=== PATIENT | female | born 1985 | race American Indian/Alaskan Native ===

== ENCOUNTER 2018-11-16 11:12 | Inpatient (IN) | payer MEDICAID ==
[2018-11-16] MEDS ORDERED: TYLENOL PO PRN ×2 (11:50→13:13)
--- NOTE | 2018-11-16 12:47 | History and Physical Report ---
History of Present Illness Date of examination: 11/16/18 Date of admission: 11/16/18 11:12 Chief complaint: HERE FOR VISIT History of present illness: OB Intake Ethnicity: Mu-Ism: Uatsdin Occupation: Hotel host Assurance Senior: Bailee Hinkle Father of baby: Amandeep ALMENDAREZ contact #: [phone] Vital Signs Height: 63 in. Weight (lb): 254 BMI: 45.1 BP: 120/ 60 mm Hg Ur. Protein: 2+ Ur. Glucose: negative Chief Complaint/Current Status: c/o missed period....jewellwenson EDC given by pt: 01/28/2019, twins Pt reports this am having leaking of clear fluid causing her to keep going to the bathroom starting at 0800. No odor of the fluid. on exam today pt has + nitrazine, +copius pooling of clear fluid, + ferning on exam. Pt Will be admitted at this time to antepartum for steroid, and antibx. She states that she did get antibx in Oct 2018 on the and at [facility] because she had bv and was told the steroid would keep her from going into labor. These records are not avaialbe to me at this time to confirm it being given. I have d/w with data security consultant team and charge nurse Nicole. Menstrual History Regularity: regular Menses every: monthly days Duration: 5 LMP: 04/2018 LMP reliability: month known LMP character: normal test type: urine test Date: 11/16/2018 BC at conception: none Planned ? no EDC Calculations EDC Confirmation: 02/08/2019 Gestational Age: 28 weeks Past History : 5 Past Medical History: Reviewed history from 12/23/2015 and no changes required: Negative Past Medical History Past Surgical History: Reviewed history from 12/23/2015 and no changes required: Negative Past Surgical History Past Medical History Abnormal PAP: negative ROSALINDA Exposure: negative Infertility: negative Uterine Anomaly: negative Uterine Surgery (not C/S): negative Other Gynecologic Problems: negative Medical History Comments: negative Social Hx: single no E/t/D Infection History Hx of STD: none Varicella/Chicken Pox Status: Previous Disease Genetic History Congenital Heart Defect: Mom: no Dad: no Jacob Disease: Mom: no Dad: no Thalassemia Mom: no Dad: no Neural Tube Defect Mom: no Dad: no Down's Syndrome Mom: no Dad: no Bib-Sachs Mom: no Dad: no Sickle Cell Disease/Trait Mom: no Dad: no Hemophilia Mom: no Dad: no Muscular Dystrophy Mom: no Dad: no Cystic Fibrosis Mom: no Dad: no [place] Chorea Mom: no Dad: no Mental Retardation Mom: no Dad: no Fragile X Mom: no Dad: no Other Genetic/Chromosomal Disorder Mom: no Dad: no Child w/other defect Mom: no Dad: no Current Allergies (reviewed today): No known allergies Past History Past Medical History: other (SEE HPI) Past Surgical History: other (SEE HPI) Family/Genetic History: other (SEE HPI) Social history: other (SEE HPI) - Obstetrical History Expected Date of Delivery: 02/08/19 Actual Gestation: 28 Week(s) 0 Day(s) : 5 Para: 4 Number of Living Children: 4 Medications and Allergies Allergies Allergy/AdvReac Type Severity Reaction Status Date / Time No Known Allergies Allergy Verified 12/21/16 17:10 Home Medications Medication Instructions Recorded Confirmed Last Taken Type HYDROcodone/APAP 7.5-325 [[place] 1 each PO Q8HR PRN #14 tablet 09/06/16 Unknown Rx 7.5-325 mg TAB] Ondansetron [Zofran TAB] 4 mg PO Q8HR PRN #14 tablet 09/06/16 Unknown Rx Tamsulosin [Flomax] 0.4 mg PO QDAY #10 cap 09/06/16 Unknown Rx Nitrofurantoin Edwards/M-Cryst 100 mg PO Q12HR #14 capsule 12/22/16 Unknown Rx [Macrobid CAP] Active Meds: Active Medications Acetaminophen (Tylenol) 650 mg PO Q4H PRN PRN Reason: Pain MILD(1-3)/Fever >100.5/MACK Dexamethasone (Decadron) 6 mg IM Q12HR [facility] Stop: 11/17/18 22:01 Docusate Sodium (Colace) 100 mg PO Q12H PRN PRN Reason: Constipation Ampicillin Sodium (Polycillin/Ns 2 Gm/100 Ml) 2 gm in 100 mls @ 100 mls/hr IV Q6HR [facility]; Protocol Stop: 11/18/18 06:59 Lactated Ringer's (Lactated Ringers) 1,000 mls @ 125 mls/hr IV DIRECT [facility] Multivitamins/Iron/Calcium ( Vitamin) 1 each PO QDAY [facility] Review of Systems All systems: negative - Vital Signs Vital signs: Vital Signs Pulse BP 95 H 121/62 11/16/18 12:09 11/16/18 12:09 Temp Pulse Resp BP Pulse Ox 95 H 121/62 11/16/18 12:09 11/16/18 12:09 - Physical Exam Breasts: Positive: normal Cardiovascular: Normal S1, Normal S2 Lungs: Positive: Clear to auscultation, Normal air movement Abdomen: Positive: normal appearance, soft. Negative: distention, tenderness, guarding Genitourinary (Female): Positive: normal external genitalia, normal perenium. Negative: perineal/vulvar lesions Vulva: both: normal Vagina: Positive: other (large clear fluid noted, no bleeding, +ferning, +nitrazine) Cervix: Negative: lesion - Obstetrical Cervical Dilatation: 1.5 Cervical Effacement Percentage: 50 station: -2 Results All other labs normal. Assessment and Plan - Patient Problems (1) 28 weeks gestation of Current Visit: Yes Status: Acute Plan to address problem: -sono to confirm gestation as pt was being seen for initial ob visit in the office today - labs (2) Limited care in third trimester Current Visit: Yes Status: Acute (3) Premature rupture of membranes Current Visit: Yes Status: Acute Plan to address problem: -admit -antibx -sono to check gestation and weight -delivery for s/sx of chorio or / maternal indications. - steroids.
[2018-11-16 13:24] LABS: Basophils % (Auto) 0.4 % (0.0-1.8); Eosinophils # (Auto) 0.1 K/mm3 (0.0-0.4); Eosinophils % (Auto) 1.1 % (0.0-4.3); Hemoglobin 10.3 gm/dl (10.1-14.3); Lymphocytes # (Auto) 1.1 K/mm3 (1.2-5.4); Lymphocytes % (Auto) 13.6 % (13.4-35.0); Mean Corpuscular HGB Conc 34 % (30-34); Mean Corpuscular Volume 94 fl (79-97); Monocytes # (Auto) 0.5 K/mm3 (0.0-0.8); Monocytes % (Auto) 5.8 % (0.0-7.3); Platelet Count 214 K/mm3 (140-440); Red Blood Count 3.19 M/mm3 (3.65-5.03); Red Cell Distribution Width 12.4 % (13.2-15.2)
[2018-11-16] MEDS: DECADRON IM SCH (15:19)
[2018-11-16 16:36] LABS: Hepatitis C Virus Antibody Non-Reactive (NonReactive)
[2018-11-16 19:02] LABS: Amphetamine Screen,Urine PRESUMPTIVE NEGATIVE; Benzodiazepines Screen,Urine PRESUMPTIVE NEGATIVE; Cocaine Screen,Urine PRESUMPTIVE NEGATIVE; Methadone Screen,Urine PRESUMPTIVE NEGATIVE; Opiate Screen,Urine PRESUMPTIVE NEGATIVE
[2018-11-16 19:15] LABS: Cannabinoid Screen,Urine PRESUMPTIVE POSITIVE
[2018-11-16] MEDS: AMPICILLIN/NS 2 GM/100 ML 2 GM/100 ML BAG IV SCH (19:32)
[2018-11-16] MEDS: LACTATED RINGERS 1,000 ML IV SCH (19:36)
--- NOTE | 2018-11-16 20:21 | Ultrasound Report ---
FINAL REPORT PROCEDURE: US OB >= 14 WK FETUS ADD GEST TECHNIQUE: HISTORY: PROM COMPARISON: No prior studies are available for comparison. FINDINGS: There is evidence of diamniotic dichorionic twin intrauterine gestation. GENERAL: IUP: Twin intrauterine gestation Twin: B Position: Cephalic Placenta-position/membranes: Anterior and right lateral with grade 1 maturity., Without previa . Amniotic fluid volume: Normal. Largest vertical pocket measured 5.5 centimeters MATERNAL: Cervix: Obscured and not well visualized. FETUS: Heart rate and rhythm: 143 beats per minute BPM, Regular . anatomic survey: There is limited visualization of the spine. Otherwise anatomical survey is wi thin normal limits. MEASUREMENTS: BPD: 6.9 centimeters corresponding to 27 weeks and 5 days HC: 25.4 centimeters corresponding to 28 weeks and 0 days AC: 25.1 centimeters corresponding to 29 weeks and 2 days FL: 5.8 centimeters corresponding to 30 weeks and 1 day Mean Gestational Age (composite criteria): 28 weeks and 6 days Ratio biometry: Normal. Estimated Weight: 1376 grams. Estimated Due Date): 02/02/2019 IMPRESSION: Twin B intrauterine gestation at 28 weeks, 6 days. Expected date of delivery 02/02/2019.
--- NOTE | 2018-11-16 20:37 | Ultrasound Report ---
FINAL REPORT PROCEDURE: US OB >= 14 WEEKS FETUS TECHNIQUE: Real-time transabdominal sonography of the uterus, placenta, amniotic fluid, adnexa, and fetus was performed with image documentation. Detailed anatomic examination was performed. Tati urements were obtained to determine age/size. M-mode Doppler was used to document heartbe at. CPT 78326 HISTORY: full anatomy scan COMPARISON: No prior studies are available for comparison. FINDINGS: There is evidence of diamniotic dichorionic twin intrauterine gestation. Fetus A: GENERAL: Position: Cephalic Placental position: Posterior and left lateral with grade 1 maturity, without previa. Amniotic fluid volume: Largest vertical pocket is 1.9 centimeters MATERNAL: Cervical length: Cervix is obscured and not well visualized cm. FETUS: Heart rate and rhythm: 135 beats per minute BPM, Regular . Detailed anatomic examination: The spine is suboptimally visualized. Otherwise unremarkab le MEASUREMENTS: BPD: 6.79 centimeters corresponding to 27 weeks and 2 days HC: 26.01 centimeters corresponding to 28 weeks and 2 days AC: 24.51 centimeters corresponding to 28 weeks and 6 days FL: 5.63 centimeters corresponding to 29 weeks and 4 days Mean Gestational Age (composite criteria): 28 weeks and 3 days Ratio biometry: Normal. Estimated Weight: 1300 grams. Estimated Due Date: 02/05/2019 IMPRESSION: Live twin intrauterine gestation. Fetus B gestational age corresponds to 28 weeks and 3 days. Expected date of delivery 02/05/2019. There is decreased amniotic fluid with the largest vertical pocket measuring 1.9 centimeters spine is suboptimally visualized
[2018-11-16] MEDS ORDERED: TRIMOX ONE (22:29)
[2018-11-16] MEDS: TRIMOX PO SCH (22:32)
[2018-11-17] MEDS: AMPICILLIN/NS 2 GM/100 ML 2 GM/100 ML BAG IV SCH ×4 (00:30→22:34)
[2018-11-17] MEDS: PEPCID IV SCH ×3 (02:37→22:26)
[2018-11-17] MEDS: DECADRON IM SCH ×3 (02:37→22:25)
--- NOTE | 2018-11-17 08:27 | Progress Note ---
Assessment and Plan pt w/o complaint this AM Reports +FM Continues to have LOF Reports occasional mild cramping IUP @ 28w twins with PPROM Baby A P: continue steroids Pt is aware she will be a repeat c/s AMFM consult ordered Subjective - Subjective Date of service: 11/17/18 (no c/o voiced this AM) Principal diagnosis: Twins limited care PPROM @ 28w1d Patient reports: movement normal Objective - Vital Signs Vital Signs: Vital Signs - 12hr 11/17/18 04:32 Temperature 97.9 F Pulse Rate 106 H Respiratory 18 Rate Blood Pressure 112/58 - Exam Breasts: deferred Cardiovascular: Regular rate Lungs: Clear to auscultation Abdomen: Present: normal appearance, soft. Absent: distention, tenderness Uterus: Present: normal FHR: auscultation normal Uterine Contraction Monitor Mode: External Uterine Contraction Pattern: Irregular Uterine Tone Measurement Phase: Resting Uterine Contraction Intensity: Mild Extremities: edema Deep Tendon Reflex Grade: Normal +2 - Labs Labs: Abnormal Labs 11/16/18 12:55 RBC 3.19 L Hct 30.0 L RDW 12.4 L Lymph # 1.1 L Seg Neutrophils % 79.1 H Laboratory Results - last 24 hr 11/16/18 11/16/18 11/16/18 12:55 12:55 12:55 WBC 8.3 RBC 3.19 L Hgb 10.3 Hct 30.0 L MCV 94 MCH 32 MCHC 34 RDW 12.4 L Plt Count 214 Lymph % (Auto) 13.6 [place] % (Auto) 5.8 Eos % (Auto) 1.1 Baso % (Auto) 0.4 Lymph # 1.1 L [place] # 0.5 Eos # 0.1 Baso # 0.0 Seg Neutrophils % 79.1 H Seg Neutrophils # 6.5 Urine Opiates Screen Urine Methadone Screen Ur Barbiturates Screen Ur Phencyclidine Scrn Ur Amphetamines Screen U Benzodiazepines Scrn Urine Cocaine Screen U Marijuana (THC) Screen Drugs of Abuse Note Hep Bs Antigen Non-reactive Hepatitis C Antibody Non-reactive HIV 1&2 Antibody Rapid HIV P24 Antigen Rubella IgG Antibody Immune Blood Type Antibody Screen 11/16/18 11/16/18 11/16/18 12:55 12:55 18:29 WBC RBC Hgb Hct MCV MCH MCHC RDW Plt Count Lymph % (Auto) [place] % (Auto) Eos % (Auto) Baso % (Auto) Lymph # [place] # Eos # Baso # Seg Neutrophils % Seg Neutrophils # Urine Opiates Screen Presumptive negative Urine Methadone Screen Presumptive negative Ur Barbiturates Screen Presumptive negative Ur Phencyclidine Scrn Presumptive negative Ur Amphetamines Screen Presumptive negative U Benzodiazepines Scrn Presumptive negative Urine Cocaine Screen Presumptive negative U Marijuana (THC) Screen Presumptive positive Drugs of Abuse Note Disclamer Hep Bs Antigen Hepatitis C Antibody HIV 1&2 Antibody Rapid Non react HIV P24 Antigen Non react Rubella IgG Antibody Blood Type A POSITIVE Antibody Screen Negative
[2018-11-17] MEDS: LACTATED RINGERS 1,000 ML IV SCH ×2 (09:14→18:37)
[2018-11-17] MEDS: PRENATAL VITAMIN PO SCH (10:34)
--- NOTE | 2018-11-17 13:45 | Consultation ---
History of Present Illness Consult date: 11/17/18 Past History Past Medical History: other (SEE HPI) Past Surgical History: other (SEE HPI) Family/Genetic History: other (SEE HPI) - Obstetrical History : 5 Medications and Allergies Allergies Allergy/AdvReac Type Severity Reaction Status Date / Time No Known Allergies Allergy Verified 12/21/16 17:10 Home Medications Medication Instructions Recorded Confirmed Last Taken Type HYDROcodone/APAP 7.5-325 [Theodosia 1 each PO Q8HR PRN #14 tablet 09/06/16 Unknown Rx 7.5-325 mg TAB] Ondansetron [Zofran TAB] 4 mg PO Q8HR PRN #14 tablet 09/06/16 Unknown Rx Tamsulosin [Flomax] 0.4 mg PO QDAY #10 cap 09/06/16 Unknown Rx Nitrofurantoin [place]/M-Cryst 100 mg PO Q12HR #14 capsule 12/22/16 Unknown Rx [Macrobid CAP] Active Meds: Active Medications Acetaminophen (Tylenol) 650 mg PO Q6H PRN PRN Reason: Pain MILD(1-3)/Fever >100.5/MACK Amoxicillin (Trimox) 500 mg PO Q8HR [facility] Stop: 11/23/18 12:59 Last Admin: 11/16/18 22:32 Dose: 500 mg Documented by: Azithromycin (Zithromax) 1,000 mg PO ONCE ONE Stop: 11/17/18 14:01 Dexamethasone (Decadron) 6 mg IM Q12HR [facility] Stop: 11/17/18 22:01 Last Admin: 11/17/18 10:33 Dose: 6 mg Documented by: Docusate Sodium (Colace) 100 mg PO Q12H PRN PRN Reason: Constipation Famotidine (Pepcid) 20 mg IV BID [facility] Last Admin: 11/17/18 10:31 Dose: 20 mg Documented by: Ampicillin Sodium (Polycillin/Ns 2 Gm/100 Ml) 2 gm in 100 mls @ 100 mls/hr IV Q6HR [facility]; Protocol Stop: 11/18/18 06:59 Last Admin: 11/17/18 08:00 Dose: 100 mls/hr Documented by: Lactated Ringer's (Lactated Ringers) 1,000 mls @ 125 mls/hr IV DIRECT [facility]CKINLEY Last Admin: 01/31/19 09:14 Dose: 125 mls/hr Documented by: Multivitamins/Iron/Calcium ( Vitamin) 1 each PO QDAY [facility] Last Admin: 11/17/18 10:34 Dose: 1 each Documented by: - Vital Signs Vital signs: Vital Signs Pulse BP 95 H 121/62 11/16/18 12:09 11/16/18 12:09 Temp Pulse Resp BP Pulse Ox 89.9 F L 96 H 16 112/54 98 11/17/18 08:20 11/17/18 11:49 11/17/18 10:22 11/17/18 11:49 11/17/18 10:22 Results Result Diagrams: 11/16/18 12:55 All other labs normal. Assessment and Plan AMFM Consult performed Full note to follow
[2018-11-17] MEDS ORDERED: ZITHROMAX PO ONE (14:00)
--- NOTE | 2018-11-17 18:05 | Event Note ---
Date: 11/17/18 (OOB to toilet) consulted with Regular diet ordered Pt denies any ctx Reports good FM X 2
[2018-11-17] MEDS: TRIMOX PO SCH (23:37)
[2018-11-18] MEDS: AMPICILLIN/NS 2 GM/100 ML 2 GM/100 ML BAG IV SCH ×3 (04:18→16:00)
--- NOTE | 2018-11-18 07:17 | Progress Note ---
Assessment and Plan Patient resting, no complaints. denies cramping or ctx. reports active FM. Last dose of steroids given @ 2200 last night 11/17/18. Continue current management. - Patient Problems (1) 28 weeks gestation of Current Visit: Yes Status: Acute (2) Limited care in third trimester Current Visit: Yes Status: Acute (3) Premature rupture of membranes Current Visit: Yes Status: Acute Qualifiers: PROM onset of labor timing: unspecified duration between rupture of membranes and onset of labor PROM gestational age: -third trimester Qualified Code(s): O42.913 - premature rupture of membranes, unspecified as to length of time between rupture and onset of labor, third trimester Subjective - Subjective Date of service: 11/18/18 (warehouse administrative assistant note) Principal diagnosis: Twins limited care PPROM @ 28w2d Patient reports: loss of fluid (small amount of leaking - clear, odorless), movement normal, no new complaints, no vaginal bleeding, no contractions Objective - Vital Signs Vital Signs: Vital Signs - 12hr 11/17/18 11/17/18 11/18/18 21:27 23:34 01:23 Temperature 98.1 F 98.1 F 98.4 F Pulse Rate 105 H 97 H Blood Pressure 107/53 101/51 11/18/18 11/18/18 11/18/18 03:41 04:57 05:44 Temperature 98.6 F 98.9 F Pulse Rate 90 Blood Pressure 106/52 11/18/18 06:48 Temperature 98.9 F Pulse Rate Blood Pressure - Exam Breasts: normal Cardiovascular: Regular rate Lungs: Clear to auscultation, Normal air movement Abdomen: Present: normal appearance, soft Vulva: both: normal Uterus: Present: normal FHR: auscultation normal Uterine Contraction Pattern: Absent Extremities: normal Deep Tendon Reflex Grade: Normal +2 - Labs Labs: Abnormal Labs 11/16/18 12:55 RBC 3.19 L Hct 30.0 L RDW 12.4 L Lymph # 1.1 L Seg Neutrophils % 79.1 H Laboratory Results - last 24 hr 11/16/18 12:55 RPR Nonreactive
[2018-11-18] MEDS: LACTATED RINGERS 1,000 ML IV SCH ×2 (09:07→16:57)
[2018-11-18] MEDS: PEPCID IV SCH ×2 (10:28→22:00)
[2018-11-18] MEDS: PRENATAL VITAMIN PO SCH (10:28)
[2018-11-18] MEDS ORDERED: AMPICILLIN/NS 2 GM/100 ML 2 GM/100 ML BAG IV ONE (16:35)
[2018-11-18] MEDS: TRIMOX PO SCH (22:00)
[2018-11-19] MEDS: LACTATED RINGERS 1,000 ML IV SCH ×3 (02:06→18:51)
[2018-11-19] MEDS: TRIMOX PO SCH ×3 (05:56→22:10)
[2018-11-19] MEDS: PEPCID IV SCH ×2 (10:30→22:10)
[2018-11-19] MEDS: PRENATAL VITAMIN PO SCH (10:30)
--- NOTE | 2018-11-19 11:02 | Progress Note ---
Assessment and Plan Patient resting comfortably in bed with no complaints. Reports +FM for baby A and baby B. Reports continued leaking of clear, odorless fluid from vagina. Patient denies vaginal bleeding or any contractions or cramps. Patient remains afebrile. VSS. Continue current POC. Subjective - Subjective Date of service: 11/19/18 Principal diagnosis: Twins limited care PPROM @ 28w3d Patient reports: loss of fluid (small amount of leaking - clear, odorless), movement normal, no new complaints, no vaginal bleeding, no contractions Objective - Vital Signs Vital Signs: Vital Signs - 12hr 11/19/18 11/19/18 08:55 09:06 Temperature 97.9 F Pulse Rate 82 82 Respiratory 16 Rate Blood Pressure 108/53 Blood Pressure 108/53 [Left] - Exam Breasts: normal Cardiovascular: Regular rate, Normal S1, Normal S2 Lungs: Clear to auscultation Abdomen: Present: normal appearance, soft, normal bowel sounds. Absent: distention, tenderness Uterus: Present: normal FHR: auscultation normal (appropriate for gestational age per last monitoring period (baby A and B)) Uterine Contraction Monitor Mode: Palpation (none palpated and patient denies) Uterine Contraction Pattern: Absent Extremities: normal - Labs Labs: Abnormal Labs 11/16/18 12:55 RBC 3.19 L Hct 30.0 L RDW 12.4 L Lymph # 1.1 L Seg Neutrophils % 79.1 H
[2018-11-20] MEDS: LACTATED RINGERS 1,000 ML IV SCH (02:41)
[2018-11-20] MEDS: TRIMOX PO SCH ×2 (05:56→14:25)
--- NOTE | 2018-11-20 08:22 | Progress Note ---
Assessment and Plan IMP: 1. IUP 30w1d by MICHAEL of 01/28/19 2. dichorionic twins 3. PPROM 4. previous C/S 5. s/p steroids REC: 1. Complete latency antibiotics. 2. No tocolysis. 3. Twice weekly BPPs (ordered for today). 4. Deliver at 34 weeks or sooner if indicated. 5. Still awaiting 10-week scan report to confirm MICHAEL. Subjective - Subjective Date of service: 11/20/18 Principal diagnosis: 1. IUP 30w1d; 2. dichorionic twins; 3. PPROM Patient reports: movement normal, no new complaints, no vaginal bleeding, no contractions Objective - Vital Signs Vital Signs: Vital Signs - 12hr 11/20/18 11/20/18 06:00 06:01 Temperature 98.2 F Pulse Rate 91 H 91 H Blood Pressure 136/63 Blood Pressure 136/63 [Left] - Exam Narrative Exam: Appears well; resting in bed. Abdomen: Present: soft. Absent: tenderness - Labs Labs: Abnormal Labs 11/16/18 12:55 RBC 3.19 L Hct 30.0 L RDW 12.4 L Lymph # 1.1 L Seg Neutrophils % 79.1 H
--- NOTE | 2018-11-20 10:53 | Progress Note ---
Assessment and Plan Patient resting comfortably in bed. US tech at bedside performing ordered US. Verbal preliminary report of BPP 8/8 for both Baby A and Baby B. Monitoring reviewed from 0600, appropriate for gestational age. Patient reports no complaints. Denies any contractions or cramps, no vaginal bleeding. Reports +FM for baby A and B. VSSAF. DWP discrepancy in EDC based on patients stated EDC of 01/28 and [facility] EDC of 02/08 from US on Oct 20. Patient produced a "Proof of letter" from [facility] dated July 19 2018 which states EDC of 01/28 by US. Request for release of records signed and sent for images and verification of adjusted EDC. Per Dr. Nixon, will adjust current EDC to 02/08/19 pending records from early US in July. Will continue with current POC. Assessment and Plan Per AMFM: IMP: 1. IUP 30w1d by MICHAEL of 01/28/19 (28w4d by EDC of 02/08/2019, US at [facility] Oct 20, 2018) 2. dichorionic twins 3. PPROM 4. previous C/S 5. s/p steroids REC: 1. Complete latency antibiotics. 2. No tocolysis. 3. Twice weekly BPPs (ordered for today). 4. Deliver at 34 weeks or sooner if indicated. 5. Still awaiting 10-week scan report to confirm MICHAEL. Subjective - Subjective Date of service: 11/20/18 Principal diagnosis: 1. IUP 28w4d; 2. dichorionic twins; 3. PPROM Patient reports: loss of fluid (continued from admission-small amount occasionally, clear, no odor), movement normal, no new complaints, no vaginal bleeding, no contractions Objective - Vital Signs Vital Signs: Vital Signs - 12hr 11/20/18 11/20/18 11/20/18 06:00 06:01 09:43 Temperature 98.2 F Pulse Rate 91 H 91 H 86 Respiratory Rate Blood Pressure 136/63 117/56 Blood Pressure 136/63 [Left] 11/20/18 09:48 Temperature 99 F Pulse Rate 86 Respiratory 16 Rate Blood Pressure Blood Pressure 117/56 [Left] - Exam Breasts: normal (appropriate for gestational age per last monitoring period 0600) Cardiovascular: Regular rate, Normal S1, Normal S2 Lungs: Clear to auscultation Abdomen: Present: normal appearance, soft, normal bowel sounds. Absent: distention, tenderness Uterus: Present: normal FHR: auscultation normal Uterine Contraction Monitor Mode: Palpation (no contractions noted on palpation, patient denies ctx or cramping) Uterine Contraction Pattern: Absent Extremities: normal Deep Tendon Reflex Grade: Normal +2 - Labs Labs: Abnormal Labs 11/16/18 12:55 RBC 3.19 L Hct 30.0 L RDW 12.4 L Lymph # 1.1 L Seg Neutrophils % 79.1 H - Results US- obstetric: pending (US tech currently at bedside. Preliminary verbal report BPP 05/25 for baby A and 05/25 for baby B)
[2018-11-20] MEDS: PRENATAL VITAMIN PO SCH (10:57)
[2018-11-20] MEDS: PEPCID IV SCH (10:58)
--- NOTE | 2018-11-20 13:58 | Ultrasound Report ---
FINAL REPORT EXAM: US OB BPP WO NON-STRESS HISTORY: twins, PROM COMPARISON: Obstetric ultrasound performed on 11/16/2017 TECHNIQUE: Biophysical profile score was performed for twin A FINDINGS: Biophysical profile score: breathing movement: 2 movement: 2 posterior and tone: 2 Qualitative amniotic fluid volume: 2 Total score: 8 heart rate: 141 beats per minute IMPRESSION: Normal biophysical profile score of 8.
--- NOTE | 2018-11-20 14:00 | Ultrasound Report ---
FINAL REPORT EXAM: US OB FOLLOWUP EA ADD GESTAT HISTORY: srom COMPARISON: Obstetric ultrasound performed on 11/16/2018 TECHNIQUE: Biophysical profile score was performed for twin B FINDINGS: Biophysical profile score: breathing movement: 2 movement: 2 posterior and tone: 2 Qualitative amniotic fluid volume: 2 Total score: 8 heart rate: 156 beats per minute. IMPRESSION: Normal biophysical profile score.
--- NOTE | 2018-11-20 18:05 | Event Note ---
Date: 11/20/18 Agree with MW exam and note. EDC listed in H&P is what was charted when pt was admitted to [facility]. The records from previous clinic have not made it to the chart at the time so an edc of 01/28/19 has not been confirmed. Will con't with edc that was confirmed via sonogram until records obtained. No s/sx of chorio at the time. Will con't expectant management.
--- NOTE | 2018-11-21 07:06 | Progress Note ---
Assessment and Plan Pt states she is in good spirits this AM No c/o voiced VSS Reports +FM X 2 Denies any bleeding cramping. P: continue POC as noted consulted. Per AMFM: IMP: 1. IUP 30w2d by MICHAEL of 01/28/19 (28w5d by EDC of 02/08/2019, US at [facility] Oct 20, 2018) 2. dichorionic twins 3. PPROM 4. previous C/S 5. s/p steroids REC: 1. Complete latency antibiotics. 2. No tocolysis. 3. Twice weekly BPPs .BPP 8/8 X 2 on 11-20-18 (Next BPP ordered for 11-23-18) 4. Deliver at 34 weeks or sooner if indicated. 5. Still awaiting 10-week scan report to confirm MICHAEL. Subjective - Subjective Date of service: 11/21/18 (no c/o voiced this AM) Principal diagnosis: 1. IUP 28w4d; 2. dichorionic twins; 3. PPROM Patient reports: loss of fluid (continued from admission-small amount occasionally, clear, no odor), movement normal, no new complaints, no vaginal bleeding, no contractions Objective - Vital Signs Vital Signs: Vital Signs - 12hr 11/20/18 11/20/18 11/21/18 19:57 19:59 00:33 Temperature 99.3 F Pulse Rate 92 H 88 Respiratory 18 Rate Blood Pressure 121/56 112/56 11/21/18 11/21/18 11/21/18 00:34 04:37 04:38 Temperature 98.3 F 98.7 F Pulse Rate 85 Respiratory 18 16 Rate Blood Pressure 105/50 - Exam Breasts: deferred Cardiovascular: Regular rate Lungs: Clear to auscultation Abdomen: Present: normal appearance, soft. Absent: distention, tenderness Vulva: both: normal Uterus: Present: normal FHR: auscultation normal Uterine Contraction Monitor Mode: External Uterine Contraction Pattern: Absent Uterine Tone Measurement Phase: Resting Extremities: normal Deep Tendon Reflex Grade: Normal +2 - Labs Labs: Abnormal Labs 11/16/18 12:55 RBC 3.19 L Hct 30.0 L RDW 12.4 L Lymph # 1.1 L Seg Neutrophils % 79.1 H
[2018-11-21] MEDS: PRENATAL VITAMIN PO SCH (10:25)
[2018-11-21] MEDS: PEPCID IV SCH ×2 (10:25→22:45)
[2018-11-21] MEDS: TRIMOX PO SCH ×3 (14:04→23:07)
[2018-11-21 20:51] LABS: Amphetamine Screen,Urine PRESUMPTIVE NEGATIVE; Benzodiazepines Screen,Urine PRESUMPTIVE NEGATIVE; Cannabinoid Screen,Urine PRESUMPTIVE NEGATIVE; Cocaine Screen,Urine PRESUMPTIVE NEGATIVE; Methadone Screen,Urine PRESUMPTIVE NEGATIVE; Opiate Screen,Urine PRESUMPTIVE NEGATIVE
[2018-11-22] MEDS: TRIMOX PO SCH ×3 (05:57→21:47)
--- NOTE | 2018-11-22 07:19 | Progress Note ---
Assessment and Plan Patient resting w/o complaints. She denies ctx, cramping or bleeding. She continues to have a scant amount of leaking fluid - nonodorus. She appears to be in good spirits. Continue current management. Report to confirm MICHAEL in chart under records. hand written, states EDC 01/28/19 by u[facility] 07/19[facility]. Per [facility]: IMP: 1. IUP 30w3d by MICHAEL of 01/28/19 (28w5d by EDC of 02/08/2019, US at [facility] Oct 20, 2018) 2. dichorionic twins 3. PPROM 4. previous C/S 5. s/p steroids REC: 1. Complete latency antibiotics. 2. No tocolysis. 3. Twice weekly BPPs .BPP 8/8 X 2 on 11-20-18 (Next BPP ordered for 11-23-18) 4. Deliver at 34 weeks or sooner if indicated. - Patient Problems (1) Limited care in third trimester Current Visit: Yes Status: Acute (2) Premature rupture of membranes Current Visit: Yes Status: Acute Qualifiers: PROM onset of labor timing: unspecified duration between rupture of membranes and onset of labor PROM gestational age: -third trimester Qualified Code(s): O42.913 - premature rupture of membranes, unspecified as to length of time between rupture and onset of labor, third trimester (3) 30 weeks gestation of Current Visit: Yes Status: Acute Subjective - Subjective Date of service: 11/22/18 Principal diagnosis: 1. IUP 30w3d; 2. dichorionic twins; 3. PPROM Patient reports: loss of fluid (continued from admission-small amount occasionally, clear, no odor), movement normal, no new complaints, no vaginal bleeding, no contractions Objective - Vital Signs Vital Signs: Vital Signs - 12hr 11/21/18 11/21/18 11/22/18 20:05 20:07 00:27 Temperature 98.4 F 98 F Pulse Rate 92 H Respiratory 18 18 Rate Blood Pressure 128/58 11/22/18 11/22/18 00:36 04:23 Temperature 97.9 F Pulse Rate 93 H 89 Respiratory 18 Rate Blood Pressure 119/62 124/58 - Exam Breasts: normal Cardiovascular: Regular rate Lungs: Clear to auscultation, Normal air movement Abdomen: Present: normal appearance, soft Vulva: both: normal Uterus: Present: normal Uterine Tone Measurement Phase: Resting - Labs Labs: Abnormal Labs 11/16/18 12:55 RBC 3.19 L Hct 30.0 L RDW 12.4 L Lymph # 1.1 L Seg Neutrophils % 79.1 H Laboratory Results - last 24 hr 11/21/18 18:29 Urine Opiates Screen Presumptive negative Urine Methadone Screen Presumptive negative Ur Barbiturates Screen Presumptive negative Ur Phencyclidine Scrn Presumptive negative Ur Amphetamines Screen Presumptive negative U Benzodiazepines Scrn Presumptive negative Urine Cocaine Screen Presumptive negative U Marijuana (THC) Screen Presumptive negative Drugs of Abuse Note Disclamer
--- NOTE | 2018-11-22 07:52 | Progress Note ---
Assessment and Plan A: 1. ZACK twin IUP at 30 3/7 weeks 2. PPROM 3. previous C/S 4. s/p steroids Rec: Monitor for labor , distress, chorioamnionitis Twice weekly testing , growth scans q3 weeks Delivery at 34 0/7 sooner if indicated Subjective - Subjective Date of service: 11/22/18 Principal diagnosis: 1. IUP 30w3d; 2. dichorionic twins; 3. PPROM Interval history: no complaints Patient reports: loss of fluid (continued from admission-small amount occasionally, clear, no odor), movement normal, no new complaints, no vaginal bleeding, no contractions Objective - Vital Signs Vital Signs: Vital Signs - 12hr 11/21/18 11/21/18 11/22/18 20:05 20:07 00:27 Temperature 98.4 F 98 F Pulse Rate 92 H Respiratory 18 18 Rate Blood Pressure 128/58 Blood Pressure [Left] 11/22/18 11/22/18 11/22/18 00:36 04:23 07:42 Temperature 97.9 F Pulse Rate 93 H 89 85 Respiratory 18 Rate Blood Pressure 119/62 124/58 110/54 Blood Pressure [Left] 11/22/18 07:43 Temperature 98.1 F Pulse Rate 85 Respiratory 18 Rate Blood Pressure Blood Pressure 110/54 [Left] - Exam Narrative Exam: NAD Abdomen: Present: soft (non tender) FHR: category 1 Uterine Contraction Pattern: Absent Extremities: normal - Labs Labs: Abnormal Labs 11/16/18 12:55 RBC 3.19 L Hct 30.0 L RDW 12.4 L Lymph # 1.1 L Seg Neutrophils % 79.1 H Laboratory Results - last 24 hr 11/21/18 18:29 Urine Opiates Screen Presumptive negative Urine Methadone Screen Presumptive negative Ur Barbiturates Screen Presumptive negative Ur Phencyclidine Scrn Presumptive negative Ur Amphetamines Screen Presumptive negative U Benzodiazepines Scrn Presumptive negative Urine Cocaine Screen Presumptive negative U Marijuana (THC) Screen Presumptive negative Drugs of Abuse Note Disclamer - Results US- obstetric: report reviewed (11/20/18 , BPP 8x8 x 2)
[2018-11-22] MEDS: PRENATAL VITAMIN PO SCH (10:29)
[2018-11-22] MEDS: PEPCID IV SCH ×2 (10:30→21:48)
[2018-11-22] MEDS ORDERED: XYLOCAINE MPF 2% ONE ×3 (15:25)
[2018-11-23] MEDS: TRIMOX PO SCH (06:13)
--- NOTE | 2018-11-23 07:21 | Progress Note ---
Assessment and Plan Patient resting comfortably in bed, reports feeling well, denies any complaints.Patient denies any contractions or cramping. Reports continued amount of scant clear fluid from vagina, no-odor noted. VSS, pt remains afebrile. Pt reports good movement for baby A and baby B. Continue current POC per [facility] recommendations. Subjective - Subjective Date of service: 11/23/18 Principal diagnosis: 1. IUP 30w4d; 2. dichorionic twins; 3. PPROM Patient reports: loss of fluid (continued from admission-small amount occasionally, clear, no odor), movement normal, no new complaints, no vaginal bleeding, no contractions Objective - Vital Signs Vital Signs: Vital Signs - 12hr 11/22/18 11/22/18 19:59 20:01 Temperature 97.9 F Pulse Rate 96 H 96 H Respiratory 18 Rate Blood Pressure 123/56 Blood Pressure 123/56 [Left] - Exam Cardiovascular: Regular rate, Normal S1, Normal S2 Lungs: Clear to auscultation Abdomen: Present: normal appearance, soft. Absent: distention, tenderness Uterus: Present: normal FHR: auscultation normal Uterine Contraction Pattern: Absent Extremities: normal - Labs Labs: Abnormal Labs 11/16/18 12:55 RBC 3.19 L Hct 30.0 L RDW 12.4 L Lymph # 1.1 L Seg Neutrophils % 79.1 H
[2018-11-23] MEDS: PEPCID IV SCH ×2 (10:00→10:15)
[2018-11-23] MEDS: PRENATAL VITAMIN PO SCH (10:15)
--- NOTE | 2018-11-23 14:30 | Ultrasound Report ---
ULTRASOUND BIOPHYSICAL PROFILE: ULTRASOUND BIOPHYSICAL PROFILE ADD EXAM: History: Twin gestation, premature rupture of membranes Technique: Transabdominal ultrasound with Doppler interrogation. Baby A 2 - breathing movements 2 - movements 2 - posture and tone 2 - Qualitative amniotic fluid volume 8 - TOTAL SCORE OF POSSIBLE 8 Heart Rate (bpm) 146 Baby B 2 - breathing movements 2 - movements 2 - posture and tone 2 - Qualitative amniotic fluid volume 8 - TOTAL SCORE OF POSSIBLE 8 Heart Rate (bpm) 150
--- NOTE | 2018-11-24 07:35 | Progress Note ---
Assessment and Plan patient doing well, no complaints. Monitoring in progress - active movement noted. reviewed u/s results from yesterday's BPP. All questions addressed, patient denies needs at this time. continue current management. 1. IUP 30w5d by MICHAEL of 01/28/19 obtained at clinic 07/19/18 (EDC of 02/08/2019, US at [facility] Oct 20, 2018) 2. dichorionic twins 3. PPROM 4. previous C/S 5. s/p steroids REC per AMFM: 1. Complete latency antibiotics. 2. No tocolysis. 3. Twice weekly BPPs -BPP 8/8 X 2 on 11-23-18 (Next BPP ordered for 11-26-18) 4. Deliver at 34 weeks or sooner if indicated. - Patient Problems (1) Limited care in third trimester Current Visit: Yes Status: Acute (2) Premature rupture of membranes Current Visit: Yes Status: Acute Qualifiers: PROM onset of labor timing: unspecified duration between rupture of membranes and onset of labor PROM gestational age: -third trimester Qualified Code(s): O42.913 - premature rupture of membranes, unspecified as to length of time between rupture and onset of labor, third trimester (3) 30 weeks gestation of Current Visit: Yes Status: Acute Subjective - Subjective Date of service: 11/24/18 ([employer] note) Principal diagnosis: 1. IUP 30w5d; 2. dichorionic twins; 3. PPROM Patient reports: loss of fluid (continued from admission-small amount occasionally, clear, no odor), movement normal, no new complaints, no vaginal bleeding, no contractions Objective - Vital Signs Vital Signs: Vital Signs - 12hr 11/23/18 11/23/18 11/24/18 19:50 20:05 05:52 Temperature 98.4 F Pulse Rate 89 89 93 H Respiratory 20 Rate Blood Pressure 131/60 118/57 Blood Pressure 131/60 [Left] 11/24/18 11/24/18 06:43 07:28 Temperature 98.2 F Pulse Rate 93 H 86 Respiratory 18 Rate Blood Pressure 123/61 Blood Pressure 118/57 [Left] - Exam Breasts: normal Cardiovascular: Regular rate Lungs: Clear to auscultation Abdomen: Present: normal appearance, soft Vulva: both: normal Uterus: Present: normal FHR: auscultation normal, category 1 Uterine Contraction Monitor Mode: External Uterine Contraction Pattern: Absent Uterine Tone Measurement Phase: Resting Extremities: normal Deep Tendon Reflex Grade: Normal +2 - Labs Labs: Abnormal Labs 11/16/18 12:55 RBC 3.19 L Hct 30.0 L RDW 12.4 L Lymph # 1.1 L Seg Neutrophils % 79.1 H
--- NOTE | 2018-11-24 08:26 | Progress Note ---
Assessment and Plan A: 1. ZACK twin IUP at 30 5/7 weeks 2. PPROM 3. previous C/S 4. s/p steroids Rec: Monitor for labor , distress, chorioamnionitis Twice weekly testing , growth scans q3 weeks Delivery at 34 0/7 sooner if indicated Subjective - Subjective Date of service: 11/24/18 Principal diagnosis: 1. IUP 30w5d; 2. dichorionic twins; 3. PPROM Interval history: no complaints Patient reports: loss of fluid (continued from admission-small amount occasionally, clear, no odor), movement normal, no new complaints, no vaginal bleeding, no contractions Objective - Vital Signs Vital Signs: Vital Signs - 12hr 11/24/18 11/24/18 11/24/18 05:52 06:43 07:27 Temperature 98.2 F 98.2 F Pulse Rate 93 H 93 H Respiratory 18 16 Rate Blood Pressure 118/57 Blood Pressure 118/57 [Left] 11/24/18 07:28 Temperature Pulse Rate 86 Respiratory Rate Blood Pressure 123/61 Blood Pressure [Left] - Exam Narrative Exam: NAD Abdomen: Present: normal appearance, soft FHR: category 1 - Labs Labs: Abnormal Labs 11/16/18 12:55 RBC 3.19 L Hct 30.0 L RDW 12.4 L Lymph # 1.1 L Seg Neutrophils % 79.1 H - Results US- obstetric: report reviewed
--- NOTE | 2018-11-25 08:08 | Progress Note ---
Assessment and Plan Patient resting comfortably in bed, reports feeling well, no complaints. Pt is in good spirits. Currently on monitor for NST. Patient denies any contractions or cramping. Reports continued amount of scant clear fluid from vagina, no-odor noted. VSS, pt remains afebrile. Pt reports good movement for baby A and baby B. Continue current POC. Per AMFM: Assessment and Plan A: 1. ZACK twin IUP at 30 6/7 weeks 2. PPROM 3. previous C/S 4. s/p steroids Rec: Monitor for labor , distress, chorioamnionitis Twice weekly testing (BPP 05/25 baby A and baby B on 11/23, repeat ordered for 11/26), growth scans q3 weeks (last growth scan 11/16/18) Delivery at 34 0/7 sooner if indicated Subjective - Subjective Date of service: 11/25/18 Principal diagnosis: 1. IUP 30w6d; 2. dichorionic twins; 3. PPROM Patient reports: loss of fluid (continued from admission-small amount occasionally, clear, no odor), movement normal, no new complaints, no vaginal bleeding, no contractions Objective - Vital Signs Vital Signs: Vital Signs - 12hr 11/24/18 11/25/18 11/25/18 21:20 06:18 07:38 Temperature 98.2 F Pulse Rate 90 86 84 Respiratory 18 Rate Blood Pressure 121/57 117/60 107/53 Blood Pressure 107/53 [Left] - Exam Breasts: normal Cardiovascular: Regular rate, Normal S1, Normal S2 Lungs: Clear to auscultation Abdomen: Present: normal appearance, soft. Absent: distention, tenderness Uterus: Present: normal FHR: auscultation normal (per last monitoring period at 2100. RN performing NST currently.) Uterine Contraction Pattern: Absent Extremities: normal - Labs Labs: Abnormal Labs 11/16/18 12:55 RBC 3.19 L Hct 30.0 L RDW 12.4 L Lymph # 1.1 L Seg Neutrophils % 79.1 H
--- NOTE | 2018-11-25 08:36 | Event Note ---
Date: 11/25/18 Agree with MW exam and note. Pt doing well. No S/Sx of chorio. Last BPP /8 times two with both having normal qualitative JORGE. I d/w BTL which she expressed wanting since initial visit in office on day of admission. Risk, benefits and alternatives were d/w pt and questions were addressed and answered. Consent was signed and placed on the chart. A: 1. ZACK twin IUP at 30 6/7 weeks 2. PPROM 3. previous C/S 4. s/p steroids 5. BTL papers signed today and on the chart Rec: Monitor for labor , distress, chorioamnionitis Twice weekly testing , growth scans q3 weeks Delivery at 34 0/7 sooner if indicated
[2018-11-25] MEDS: PEPCID IV SCH (09:51)
[2018-11-25] MEDS: PRENATAL VITAMIN PO SCH (09:52)
[2018-11-26] MEDS ORDERED: LACTATED RINGERS 500 ML IV ONE (02:00)
[2018-11-26] MEDS: PEPCID IV SCH ×3 (10:25→22:22)
[2018-11-26] MEDS: PRENATAL VITAMIN PO SCH ×2 (10:25→10:32)
--- NOTE | 2018-11-26 11:52 | Progress Note ---
Assessment and Plan - Patient Problems (1) premature rupture of membranes Current Visit: Yes Status: Acute Qualifiers: PROM onset of labor timing: onset of labor more than 24 hours following rupture Qualified Code(s): O42.119 - premature rupture of membranes, onset of labor more than 24 hours following rupture, unspecified trimester Plan to address problem: During the night patient's nurse had a difficult time tracing twin A. This a.m. patient had a biophysical profile which showed twin A for 4/8(04 amniotic fluid and tone) twin B biophysical profile was 8 out of 8. tracing of the twins now intact with a repeat biophysical profile this afternoon. (2) Twin gestation in third trimester Current Visit: Yes Status: Acute Qualifiers: Multiple gestation type: dichorionic and diamniotic Qualified Code(s): O30.043 - Twin , dichorionic/diamniotic, third trimester (3) Limited care in third trimester Current Visit: Yes Status: Acute (4) Positive urine drug screen Current Visit: Yes Status: Acute (5) Previous section Current Visit: Yes Status: Acute Plan to address problem: We will continue per recommendation of perinatologist. If delivery is indicated the patient would have a repeat section. Subjective - Subjective Principal diagnosis: 1. IUP 30w6d; 2. dichorionic twins; 3. PPROM Patient reports: loss of fluid (continued from admission-small amount occasionally, clear, no odor), movement normal, no new complaints, no vaginal bleeding, no contractions Objective - Vital Signs Vital Signs: Vital Signs - 12hr 11/26/18 11/26/18 11/26/18 01:15 05:25 05:27 Temperature 98.0 F 98 F Pulse Rate 77 88 88 Respiratory 18 14 Rate Blood Pressure 122/63 98/57 Blood Pressure 98/52 [Left] O2 Sat by Pulse Oximetry 11/26/18 11/26/18 11/26/18 05:29 07:41 08:19 Temperature Pulse Rate 102 H 85 87 Respiratory Rate Blood Pressure 97/52 121/58 Blood Pressure [Left] O2 Sat by Pulse 96 Oximetry 11/26/18 11/26/18 11/26/18 08:24 08:29 08:34 Temperature Pulse Rate 102 H 95 H 96 H Respiratory Rate Blood Pressure Blood Pressure [Left] O2 Sat by Pulse 97 96 97 Oximetry 11/26/18 11/26/18 11/26/18 08:36 08:39 08:44 Temperature Pulse Rate 92 H 101 H 104 H Respiratory Rate Blood Pressure Blood Pressure [Left] O2 Sat by Pulse 94 97 96 Oximetry 11/26/18 11/26/18 11/26/18 08:49 08:54 08:59 Temperature Pulse Rate 101 H 88 99 H Respiratory Rate Blood Pressure Blood Pressure [Left] O2 Sat by Pulse 96 98 96 Oximetry 11/26/18 11/26/18 09:04 09:09 Temperature Pulse Rate 92 H 93 H Respiratory Rate Blood Pressure Blood Pressure [Left] O2 Sat by Pulse 97 97 Oximetry - Exam Breasts: deferred Cardiovascular: Regular rate Lungs: Normal air movement Abdomen: Present: normal appearance, soft Uterus: Present: firm - Labs Labs: Abnormal Labs 11/16/18 12:55 RBC 3.19 L Hct 30.0 L RDW 12.4 L Lymph # 1.1 L Seg Neutrophils % 79.1 H - Results US- obstetric: other (preliminary report reviewed)
--- NOTE | 2018-11-26 13:23 | Consultation ---
Consult Note - Parent Education I met with parent(s) and discussed the following:: Need for NICU admission, Poss ible need for intubation and surfactant or other resp support, Temperature regulation, Head ultrasounds to evaluate IVH, Eye exams for ROP screening, Possible need for IV fluids/TPN and IV antibiotics, Possible need for umbilical lines, Importance of providing breast milk & encouraged pumping aft delivery, Donor breast milk if baby meets criteria after , Slow feeding advancement and monitoring of tolerance. NG/OG feeds, Need to monitor for jaundice, Data for survival & survival without significant co-morbidities Parent(s) demonstrated understanding of all the information:: Yes Additional Comment: 30 weeks 6 days, Di, Di Twins. Twin A PPROM. Assessment and Plan - Assessment Gestation:: 30 (30 weeks, 6 days) Estimated Weight: Twin A: 1376 g, Twin B: 1300 g ( 11/16/18) Baby's name: Undecided. Twin A (Female) Twin B: (?) - Plan Plan: Agree with Mag & steroids Will attend delivery Please call NICU with questions
--- NOTE | 2018-11-27 06:57 | Ultrasound Report ---
FINAL REPORT EXAM: US OB BPP EA ADD EXAM HISTORY: Twins COMPARISONS: 11/20/2018 FINDINGS: Limited third trimester transabdominal ultrasound utilizing grayscale, color Doppler and M-mode techn ique for biophysical profile Living twin . Twin B shows biophysical profile score of 8/8. Cardiac activity is 145 beats p er minute. Amniotic fluid volume is subjectively normal with maximum vertical pocket of at least 5 cm . IMPRESSION: Twin B biophysical profile score of 8/8.
--- NOTE | 2018-11-27 07:02 | Ultrasound Report ---
FINAL REPORT EXAM: US OB BPP WO NON-STRESS HISTORY: Verify weel being twins with SRM COMPARISONS: 11/20/2018 FINDINGS: Limited transabdominal 3rd trimester ultrasound utilizing grayscale, color Doppler and M-mode technJack in the Box ue for biophysical profile Living twin . Twin a shows biophysical profile score of 6/8. The measured maximum vertical p ocket is 1.4 cm. Images of twin A show subjectively normal amniotic fluid volume. IMPRESSION: Twin a biophysical profile score of 6/8. Maximum vertical pocket measures 1.4 cm, however limited exa m shows subjectively normal amniotic fluid volume. Close interval follow-up is suggested if clinicall y feasible.
--- NOTE | 2018-11-27 07:07 | Ultrasound Report ---
FINAL REPORT EXAM: US OB BPP EA ADD EXAM HISTORY: PROM COMPARISONS: None. FINDINGS: Limited 3rd trimester transabdominal ultrasound for biophysical profile Living twin . Twin B shows recorded cardiac activity of 129 beats per minute, cephalic prese ntation and biophysical profile score of 8/8. IMPRESSION: Living twin . Twin B shows biophysical profile score of 8/8.
--- NOTE | 2018-11-27 07:12 | Ultrasound Report ---
FINAL REPORT EXAM: US OB BPP WO NON-STRESS HISTORY: wellbeing, twins, di/di, PPROM COMPARISONS: None. FINDINGS: Limited transabdominal grayscale, color Doppler and M-mode 3rd trimester ultrasound for biophysical p rofile Living twin . Twin A demonstrates cardiac activity of 149 beats per minute and biophysical p rofile score of 4/8. Twin A maximal vertical pocket is less than 1 cm, and no points were allocated f or tone on real-time exam. IMPRESSION: Living twin . Twin a shows biophysical profile score of 4/8, as detailed above.
--- NOTE | 2018-11-27 10:38 | Progress Note ---
Assessment and Plan - Patient Problems (1) premature rupture of membranes Current Visit: Yes Status: Acute Qualifiers: PROM onset of labor timing: onset of labor more than 24 hours following rupture Qualified Code(s): O42.119 - premature rupture of membranes, onset of labor more than 24 hours following rupture, unspecified trimester Plan to address problem: Patient had a biophysical profile which showed twin A for 6/8(0 for amniotic fluid twin B biophysical profile was 8 out of 8. (2) Twin gestation in third trimester Current Visit: Yes Status: Acute Qualifiers: Multiple gestation type: dichorionic and diamniotic Qualified Code(s): O30.043 - Twin , dichorionic/diamniotic, third trimester (3) Limited care in third trimester Current Visit: Yes Status: Acute (4) Positive urine drug screen Current Visit: Yes Status: Acute (5) Previous section Current Visit: Yes Status: Acute Plan to address problem: We will continue per recommendation of perinatologist. If delivery is indicated the patient would have a repeat section. Subjective - Subjective Principal diagnosis: 1. IUP 31w0d; 2. dichorionic twins; 3. PPROM Interval history: Patient was improved biophysical profile on twin a an reactive tracings on both twins past 24 hours Patient reports: loss of fluid (continued from admission-small amount occasionally, clear, no odor), movement normal, no new complaints, no vaginal bleeding, no contractions Objective - Vital Signs Vital Signs: Vital Signs - 12hr 11/26/18 11/27/18 11/27/18 23:59 00:01 04:05 Temperature 98.3 F 98.2 F Pulse Rate 96 H 96 H 95 H Respiratory 18 16 Rate Blood Pressure 136/63 112/55 Blood Pressure 136/63 112/55 [Left] - Exam Breasts: deferred Cardiovascular: Regular rate Lungs: Normal air movement Uterus: Present: firm FHR: category 1 (both) - Labs Labs: Abnormal Labs 11/16/18 12:55 RBC 3.19 L Hct 30.0 L RDW 12.4 L Lymph # 1.1 L Seg Neutrophils % 79.1 H
--- NOTE | 2018-11-27 10:50 | Progress Note ---
Assessment and Plan A: 1. ZACK twin IUP at 31 1/7 weeks 2. PPROM 3. previous C/S 4. s/p steroids Rec: Monitor for labor , distress, chorioamnionitis Twice weekly testing , growth scans q3 weeks Delivery at 34 0/7 sooner if indicated Subjective - Subjective Date of service: 11/27/18 Principal diagnosis: 1. IUP 31w1d; 2. dichorionic twins; 3. PPROM Interval history: no complaints Denied contractions or bleeding Patient reports: loss of fluid (continued from admission-small amount occasionally, clear, no odor), movement normal, no new complaints, no vaginal bleeding, no contractions Objective - Vital Signs Vital Signs: Vital Signs - 12hr 11/26/18 11/27/18 11/27/18 23:59 00:01 04:05 Temperature 98.3 F 98.2 F Pulse Rate 96 H 96 H 95 H Respiratory 18 16 Rate Blood Pressure 136/63 112/55 Blood Pressure 136/63 112/55 [Left] O2 Sat by Pulse Oximetry 11/27/18 11/27/18 10:44 10:45 Temperature Pulse Rate 109 H 108 H Respiratory Rate Blood Pressure 114/59 Blood Pressure [Left] O2 Sat by Pulse 99 Oximetry - Exam Narrative Exam: laying in bed NAD Uterus: Present: normal FHR: category 1 Uterine Contraction Pattern: Absent - Labs Labs: Abnormal Labs 11/16/18 12:55 RBC 3.19 L Hct 30.0 L RDW 12.4 L Lymph # 1.1 L Seg Neutrophils % 79.1 H - Results US- obstetric: report reviewed (11/26 A: 03/25 MVP 1.4cm , B 05/25 MVP 5 , with NST cat I x 2 , reassuring testing )
[2018-11-27] MEDS: PRENATAL VITAMIN PO SCH (19:21)
[2018-11-27] MEDS: PEPCID IV SCH ×2 (19:27→22:13)
--- NOTE | 2018-11-28 05:45 | Progress Note ---
Assessment and Plan Pt resting No c/o voiced. VSS Afebrile IUP DI/DI twins with PPROM Pt reports minimal leaking Denies any bleeding Reports good FM from both babies. Will continue POC as recommended. testing ordered for tomorrow 11-29-18. A: 1. ZACK twin IUP at 31 2/7 weeks 2. PPROM 3. previous C/S 4. s/p steroids Rec: Monitor for labor , distress, chorioamnionitis Twice weekly testing , growth scans q3 weeks Delivery at 34 0/7 sooner if indicated Subjective - Subjective Date of service: 11/28/18 (no c/o voiced) Principal diagnosis: 1. IUP 31w2d; 2. dichorionic twins; 3. PPROM Patient reports: loss of fluid (continued from admission-small amount occasionally, clear, no odor), movement normal, no new complaints, no vaginal bleeding, no contractions Objective - Vital Signs Vital Signs: Vital Signs - 12hr 11/27/18 11/27/18 11/27/18 19:53 20:01 20:06 Temperature 98.6 F Pulse Rate 95 H 104 H Respiratory 18 Rate Blood Pressure 129/62 O2 Sat by Pulse 97 97 Oximetry 11/27/18 11/27/18 11/27/18 20:11 20:16 20:21 Temperature Pulse Rate 100 H 105 H 100 H Respiratory Rate Blood Pressure O2 Sat by Pulse 97 97 96 Oximetry 11/27/18 11/28/18 11/28/18 20:26 00:17 00:24 Temperature 98.5 F Pulse Rate 106 H 91 H Respiratory 18 Rate Blood Pressure 121/56 O2 Sat by Pulse 97 96 Oximetry 11/28/18 11/28/18 11/28/18 00:30 00:35 00:40 Temperature Pulse Rate 98 H 97 H 97 H Respiratory Rate Blood Pressure O2 Sat by Pulse 96 96 97 Oximetry 11/28/18 11/28/18 11/28/18 00:45 00:50 00:55 Temperature Pulse Rate 96 H 104 H 93 H Respiratory Rate Blood Pressure O2 Sat by Pulse 97 96 96 Oximetry 11/28/18 11/28/18 11/28/18 00:59 04:00 04:02 Temperature 98.3 F Pulse Rate 104 H 100 H Respiratory 16 Rate Blood Pressure 115/56 O2 Sat by Pulse 95 Oximetry 11/28/18 11/28/18 11/28/18 04:03 04:08 04:13 Temperature Pulse Rate 101 H 94 H 95 H Respiratory Rate Blood Pressure O2 Sat by Pulse 96 96 96 Oximetry 11/28/18 11/28/18 11/28/18 04:18 04:23 04:28 Temperature Pulse Rate 94 H 82 97 H Respiratory Rate Blood Pressure O2 Sat by Pulse 96 97 95 Oximetry 11/28/18 11/28/18 11/28/18 04:33 04:38 04:43 Temperature Pulse Rate 92 H 96 H 96 H Respiratory Rate Blood Pressure O2 Sat by Pulse 96 96 97 Oximetry 11/28/18 11/28/18 11/28/18 04:48 04:53 04:58 Temperature Pulse Rate 96 H 98 H 99 H Respiratory Rate Blood Pressure O2 Sat by Pulse 96 97 97 Oximetry 11/28/18 11/28/18 11/28/18 05:03 05:08 05:13 Temperature Pulse Rate 91 H 89 97 H Respiratory Rate Blood Pressure O2 Sat by Pulse 97 97 96 Oximetry 11/28/18 05:18 Temperature Pulse Rate 89 Respiratory Rate Blood Pressure O2 Sat by Pulse 96 Oximetry - Exam Breasts: deferred Cardiovascular: Regular rate Lungs: Clear to auscultation, Normal air movement Abdomen: Present: normal appearance, soft, normal bowel sounds. Absent: distention, tenderness Vulva: both: normal Uterus: Present: normal FHR: auscultation normal (scheduled NSTs have been reactive) Uterine Contraction Monitor Mode: External Uterine Contraction Pattern: Absent Uterine Tone Measurement Phase: Resting Extremities: normal Deep Tendon Reflex Grade: Normal +2 - Labs Labs: Abnormal Labs 11/16/18 12:55 RBC 3.19 L Hct 30.0 L RDW 12.4 L Lymph # 1.1 L Seg Neutrophils % 79.1 H
[2018-11-28] MEDS: PEPCID IV SCH ×2 (10:02→22:16)
[2018-11-28] MEDS: PRENATAL VITAMIN PO SCH (10:02)
--- NOTE | 2018-11-29 07:08 | Progress Note ---
Assessment and Plan Pt sitting up in bed eating breakfast - no complaints. reports active FM, denies ctx. No abd tenderness. small amount of clear non-odorous fluids. no temp. Continue current management. A: 1. ZACK twin IUP at 31 3/7 weeks 2. PPROM 3. previous C/S 4. s/p steroids Rec: Monitor for labor , distress, chorioamnionitis Twice weekly testing , growth scans q3 weeks (BPP and growth scan 11/29/18) Delivery at 34 0/7 sooner if indicated - Patient Problems (1) Limited care in third trimester Current Visit: Yes Status: Acute (2) Premature rupture of membranes Current Visit: Yes Status: Acute Qualifiers: PROM onset of labor timing: unspecified duration between rupture of membranes and onset of labor PROM gestational age: -third trimester Qualified Code(s): O42.913 - premature rupture of membranes, unspecified as to length of time between rupture and onset of labor, third trimester (3) 31 weeks gestation of Current Visit: Yes Status: Acute Subjective - Subjective Date of service: 11/29/18 Principal diagnosis: 1. IUP 31w3d; 2. dichorionic twins; 3. PPROM Patient reports: loss of fluid (continued from admission-small amount occasionally, clear, no odor), movement normal, no new complaints, no vaginal bleeding, no contractions Objective - Vital Signs Vital Signs: Vital Signs - 12hr 11/28/18 11/28/18 11/28/18 19:37 19:48 19:49 Temperature 98.1 F Pulse Rate 100 H 104 H Respiratory 18 Rate Blood Pressure 117/56 O2 Sat by Pulse 97 Oximetry 11/28/18 11/28/18 11/28/18 19:54 19:59 20:04 Temperature Pulse Rate 96 H 99 H 92 H Respiratory Rate Blood Pressure O2 Sat by Pulse 98 97 97 Oximetry 11/28/18 11/28/18 11/28/18 20:09 20:14 20:19 Temperature Pulse Rate 95 H 99 H 105 H Respiratory Rate Blood Pressure O2 Sat by Pulse 97 97 97 Oximetry 11/28/18 11/28/18 11/28/18 20:24 20:29 20:34 Temperature Pulse Rate 106 H 105 H 109 H Respiratory Rate Blood Pressure O2 Sat by Pulse 97 98 97 Oximetry 11/28/18 11/28/18 11/28/18 20:39 20:44 20:49 Temperature Pulse Rate 91 H 95 H 95 H Respiratory Rate Blood Pressure O2 Sat by Pulse 97 97 97 Oximetry 11/28/18 11/28/18 11/28/18 20:54 20:59 21:04 Temperature Pulse Rate 94 H 96 H 99 H Respiratory Rate Blood Pressure O2 Sat by Pulse 98 97 97 Oximetry 11/29/18 11/29/18 11/29/18 00:38 00:47 00:48 Temperature 98.2 F Pulse Rate 90 86 Respiratory 18 Rate Blood Pressure 111/56 O2 Sat by Pulse 97 Oximetry 11/29/18 11/29/18 11/29/18 00:53 00:58 01:03 Temperature Pulse Rate 88 90 87 Respiratory Rate Blood Pressure O2 Sat by Pulse 96 96 97 Oximetry 11/29/18 11/29/18 11/29/18 01:08 01:13 01:18 Temperature Pulse Rate 95 H 90 83 Respiratory Rate Blood Pressure O2 Sat by Pulse 97 96 97 Oximetry 11/29/18 11/29/18 11/29/18 01:23 01:28 01:33 Temperature Pulse Rate 93 H 93 H 86 Respiratory Rate Blood Pressure O2 Sat by Pulse 97 97 96 Oximetry 11/29/18 11/29/18 11/29/18 01:38 01:43 01:48 Temperature Pulse Rate 90 94 H 83 Respiratory Rate Blood Pressure O2 Sat by Pulse 96 96 96 Oximetry 11/29/18 11/29/18 11/29/18 01:53 01:58 02:03 Temperature Pulse Rate 93 H 83 Respiratory Rate Blood Pressure O2 Sat by Pulse 96 96 94 Oximetry 11/29/18 04:56 Temperature Pulse Rate 108 H Respiratory Rate Blood Pressure 117/56 O2 Sat by Pulse Oximetry - Exam Breasts: normal Cardiovascular: Regular rate Lungs: Clear to auscultation Abdomen: Present: normal appearance, soft Vulva: both: normal Uterus: Present: normal FHR: auscultation normal Uterine Contraction Monitor Mode: External Uterine Contraction Pattern: Absent Extremities: normal Deep Tendon Reflex Grade: Normal +2 - Labs Labs: Abnormal Labs 11/16/18 12:55 RBC 3.19 L Hct 30.0 L RDW 12.4 L Lymph # 1.1 L Seg Neutrophils % 79.1 H
--- NOTE | 2018-11-29 10:04 | Progress Note ---
Assessment and Plan A: 1. ZACK twin IUP at 31 3/7 weeks 2. PPROM 3. previous C/S 4. s/p steroids Rec: Monitor for labor , distress, chorioamnionitis Twice weekly testing , growth scans q3 weeks Delivery at 34 0/7 sooner if indicated Subjective - Subjective Date of service: 11/29/18 Principal diagnosis: 1. IUP 31w3d; 2. dichorionic twins; 3. PPROM Interval history: She has no complaints Denied contractions or bleeding Good movement is noted Patient reports: loss of fluid (continued from admission-small amount occasionally, clear, no odor), movement normal, no new complaints, no vaginal bleeding, no contractions Objective - Vital Signs Vital Signs: Vital Signs - 12hr 11/29/18 11/29/18 11/29/18 00:38 00:47 00:48 Temperature 98.2 F Pulse Rate 90 86 Respiratory 18 Rate Blood Pressure 111/56 Blood Pressure [Left] O2 Sat by Pulse 97 Oximetry 11/29/18 11/29/18 11/29/18 00:53 00:58 01:03 Temperature Pulse Rate 88 90 87 Respiratory Rate Blood Pressure Blood Pressure [Left] O2 Sat by Pulse 96 96 97 Oximetry 11/29/18 11/29/18 11/29/18 01:08 01:13 01:18 Temperature Pulse Rate 95 H 90 83 Respiratory Rate Blood Pressure Blood Pressure [Left] O2 Sat by Pulse 97 96 97 Oximetry 11/29/18 11/29/18 11/29/18 01:23 01:28 01:33 Temperature Pulse Rate 93 H 93 H 86 Respiratory Rate Blood Pressure Blood Pressure [Left] O2 Sat by Pulse 97 97 96 Oximetry 11/29/18 11/29/18 11/29/18 01:38 01:43 01:48 Temperature Pulse Rate 90 94 H 83 Respiratory Rate Blood Pressure Blood Pressure [Left] O2 Sat by Pulse 96 96 96 Oximetry 11/29/18 11/29/18 11/29/18 01:53 01:58 02:03 Temperature Pulse Rate 93 H 83 Respiratory Rate Blood Pressure Blood Pressure [Left] O2 Sat by Pulse 96 96 94 Oximetry 11/29/18 11/29/18 04:56 08:09 Temperature 98.0 F Pulse Rate 108 H 98 H Respiratory 18 Rate Blood Pressure 117/56 114/53 Blood Pressure 114/53 [Left] O2 Sat by Pulse Oximetry - Exam Narrative Exam: sitting up in bed NAD Abdomen: Present: normal appearance, soft (no palpable contractions ) Extremities: normal - Labs Labs: Abnormal Labs 11/16/18 12:55 RBC 3.19 L Hct 30.0 L RDW 12.4 L Lymph # 1.1 L Seg Neutrophils % 79.1 H - Results US- obstetric: pending
[2018-11-29] MEDS: PEPCID IV SCH ×2 (10:22→23:50)
[2018-11-29] MEDS: PRENATAL VITAMIN PO SCH (10:23)
--- NOTE | 2018-11-29 12:59 | Ultrasound Report ---
ULTRASOUND BIOPHYSICAL PROFILE: History: well being Technique: Transabdominal ultrasound with Doppler interrogation. Baby A 2 - breathing movements 2 - movements 2 - posture and tone 2 - Qualitative amniotic fluid volume 8 - TOTAL SCORE OF POSSIBLE 8 Heart Rate (bpm) 141 ULTRASOUND BIOPHYSICAL PROFILE: History: well being Technique: Transabdominal ultrasound with Doppler interrogation. Baby B 2 - breathing movements 2 - movements 2 - posture and tone 2 - Qualitative amniotic fluid volume 8 - TOTAL SCORE OF POSSIBLE 8 Heart Rate (bpm) 156
[2018-11-30] MEDS: PEPCID IV SCH ×4 (01:25→21:41)
--- NOTE | 2018-11-30 07:30 | Progress Note ---
Assessment and Plan Pt A&O X 3 No c/o voiced Reports +FM X 2 VSS Cat 1 when NST is done consulted A: 1. ZACK twin IUP at 31 4/7 weeks 2. PPROM 3. previous C/S 4. s/p steroids Rec: Monitor for labor , distress, chorioamnionitis Twice weekly testing , growth scans q3 weeks Delivery at 34 0/7 sooner if indicated Subjective - Subjective Date of service: 11/30/18 (no c/o voiced) Principal diagnosis: 1. IUP 31w4d; 2. dichorionic twins; 3. PPROM Patient reports: loss of fluid (continued from admission-small amount occasionally, clear, no odor), movement normal, no new complaints, no vaginal bleeding, no contractions Objective - Vital Signs Vital Signs: Vital Signs - 12hr 11/29/18 11/29/18 11/29/18 19:43 20:25 21:33 Temperature 99.0 F Pulse Rate 110 H 124 H Respiratory 18 Rate Blood Pressure 135/61 O2 Sat by Pulse 96 Oximetry 11/29/18 11/30/18 11/30/18 23:00 00:00 00:49 Temperature 97.8 F 98.8 F Pulse Rate 96 H Respiratory 18 20 Rate Blood Pressure 128/66 O2 Sat by Pulse 97 Oximetry 11/30/18 11/30/18 11/30/18 00:54 00:59 01:04 Temperature Pulse Rate 98 H 101 H 91 H Respiratory Rate Blood Pressure O2 Sat by Pulse 97 97 96 Oximetry 11/30/18 11/30/18 11/30/18 01:09 01:14 01:19 Temperature Pulse Rate 87 98 H 88 Respiratory Rate Blood Pressure O2 Sat by Pulse 97 98 96 Oximetry 11/30/18 11/30/18 11/30/18 01:24 01:29 01:34 Temperature Pulse Rate 101 H 102 H 91 H Respiratory Rate Blood Pressure O2 Sat by Pulse 96 96 96 Oximetry 11/30/18 11/30/18 11/30/18 01:39 01:44 01:51 Temperature Pulse Rate 97 H 101 H 90 Respiratory Rate Blood Pressure 118/57 O2 Sat by Pulse 96 97 Oximetry 11/30/18 11/30/18 11/30/18 02:10 02:36 03:54 Temperature 99.1 F 99.1 F Pulse Rate 85 Respiratory 20 18 Rate Blood Pressure 115/58 O2 Sat by Pulse Oximetry 11/30/18 04:48 Temperature 98.8 F Pulse Rate Respiratory 20 Rate Blood Pressure O2 Sat by Pulse Oximetry - Exam Breasts: deferred Cardiovascular: Regular rate Lungs: Normal air movement Abdomen: Present: normal appearance, soft, normal bowel sounds. Absent: distention, tenderness Uterus: Present: normal FHR: auscultation normal (NST reactive X 2 babies) Uterine Contraction Monitor Mode: External Uterine Contraction Pattern: Absent Uterine Tone Measurement Phase: Resting Extremities: normal Deep Tendon Reflex Grade: Normal +2 - Labs Labs: Abnormal Labs 11/16/18 12:55 RBC 3.19 L Hct 30.0 L RDW 12.4 L Lymph # 1.1 L Seg Neutrophils % 79.1 H
[2018-11-30] MEDS: PRENATAL VITAMIN PO SCH (10:34)
--- NOTE | 2018-11-30 15:17 | Event Note ---
Date: 11/30/[address] Hamlin, [facility] [place] called for specific u/s information to help with correct dating of . Spoke with Lety; states she is unable to give any information without the patient's consent. Spoke with Ms. oJseph and encouraged her to call to release any information they may have. Pt agreed and states will call right away.
--- NOTE | 2018-12-01 08:47 | Progress Note ---
Assessment and Plan A: 1. ZACK twin IUP at 31 5/7 weeks ( still attempting to obtain confirmation from [facility], FELI signed again today and faxed and placed in the chart) 2. PPROM 3. previous C/S 4. s/p steroids Rec: Monitor for labor , distress, chorioamnionitis Twice weekly testing , growth scans q3 weeks Delivery at 34 0/7 sooner if indicated - Patient Problems (1) 31 weeks gestation of Current Visit: Yes Status: Acute (2) Limited care in third trimester Current Visit: Yes Status: Acute (3) Premature rupture of membranes Current Visit: Yes Status: Acute Qualifiers: PROM onset of labor timing: unspecified duration between rupture of membranes and onset of labor PROM gestational age: -third trimester Qualified Code(s): O42.913 - premature rupture of membranes, unspecified as to length of time between rupture and onset of labor, third trimester (4) Previous section Current Visit: Yes Status: Acute (5) Twin gestation in third trimester Current Visit: Yes Status: Acute Qualifiers: Multiple gestation type: dichorionic and diamniotic Qualified Code(s): O30.043 - Twin , dichorionic/diamniotic, third trimester (6) Sterilization Current Visit: Yes Status: Acute Plan to address problem: consents signed 11/25/2018 Subjective - Subjective Date of service: 12/01/18 Principal diagnosis: 1. IUP 31w5d; 2. dichorionic twins; 3. PPROM Patient reports: loss of fluid (continued from admission-small amount occasionally, clear, no odor), movement normal, no new complaints, no vaginal bleeding, no contractions Objective - Vital Signs Vital Signs: Vital Signs - 12hr 11/30/18 11/30/18 12/01/18 23:48 23:49 00:33 Temperature 98.6 F Pulse Rate 111 H 117 H 121 H Respiratory 18 Rate Blood Pressure 120/61 Blood Pressure 120/61 [Left] O2 Sat by Pulse 98 96 Oximetry 12/01/18 12/01/18 12/01/18 00:38 00:43 00:48 Temperature Pulse Rate 117 H 108 H 107 H Respiratory Rate Blood Pressure Blood Pressure [Left] O2 Sat by Pulse 95 93 95 Oximetry 12/01/18 12/01/18 12/01/18 00:52 00:53 03:37 Temperature Pulse Rate 104 H 112 H 112 H Respiratory Rate Blood Pressure 111/53 Blood Pressure [Left] O2 Sat by Pulse 94 95 Oximetry 12/01/18 12/01/18 12/01/18 03:38 04:17 04:22 Temperature 98.8 F Pulse Rate 102 H 98 H 112 H Respiratory 18 Rate Blood Pressure Blood Pressure 111/53 [Left] O2 Sat by Pulse 97 96 96 Oximetry 12/01/18 12/01/18 12/01/18 04:27 04:29 04:32 Temperature Pulse Rate 109 H 105 H 106 H Respiratory Rate Blood Pressure Blood Pressure [Left] O2 Sat by Pulse 95 94 96 Oximetry 12/01/18 12/01/18 12/01/18 04:37 04:39 04:42 Temperature Pulse Rate 109 H 108 H 100 H Respiratory Rate Blood Pressure Blood Pressure [Left] O2 Sat by Pulse 95 94 95 Oximetry 12/01/18 12/01/18 12/01/18 04:47 04:52 04:57 Temperature Pulse Rate 98 H 98 H 98 H Respiratory Rate Blood Pressure Blood Pressure [Left] O2 Sat by Pulse 96 95 95 Oximetry 12/01/18 12/01/18 12/01/18 05:02 05:07 05:12 Temperature Pulse Rate 98 H 101 H 88 Respiratory Rate Blood Pressure Blood Pressure [Left] O2 Sat by Pulse 96 96 96 Oximetry 12/01/18 12/01/18 12/01/18 05:17 05:22 05:27 Temperature Pulse Rate 100 H 109 H 108 H Respiratory Rate Blood Pressure Blood Pressure [Left] O2 Sat by Pulse 96 96 95 Oximetry 12/01/18 12/01/18 12/01/18 05:28 05:32 05:37 Temperature Pulse Rate 95 H 109 H 108 H Respiratory Rate Blood Pressure Blood Pressure [Left] O2 Sat by Pulse 94 95 96 Oximetry 12/01/18 12/01/18 12/01/18 05:42 05:47 05:52 Temperature Pulse Rate 101 H 96 H 93 H Respiratory Rate Blood Pressure Blood Pressure [Left] O2 Sat by Pulse 95 95 95 Oximetry 12/01/18 12/01/18 12/01/18 05:57 06:02 06:07 Temperature Pulse Rate 104 H 105 H 92 H Respiratory Rate Blood Pressure Blood Pressure [Left] O2 Sat by Pulse 96 98 96 Oximetry 12/01/18 06:12 Temperature Pulse Rate 100 H Respiratory Rate Blood Pressure Blood Pressure [Left] O2 Sat by Pulse 97 Oximetry - Exam Breasts: deferred Cardiovascular: Regular rate Lungs: Clear to auscultation, Normal air movement Abdomen: Present: soft. Absent: tenderness Uterus: Present: fundal height above umbilicus. Absent: tenderness FHR: category 1 (x2) Deep Tendon Reflex Grade: Normal +2 - Labs Labs: Abnormal Labs 11/16/18 12:55 RBC 3.19 L Hct 30.0 L RDW 12.4 L Lymph # 1.1 L Seg Neutrophils % 79.1 H
[2018-12-01] MEDS: PRENATAL VITAMIN PO SCH (11:35)
[2018-12-01] MEDS: PEPCID IV SCH ×2 (11:35→22:18)
--- NOTE | 2018-12-01 12:43 | Progress Note ---
Assessment and Plan A: 1. ZACK twin IUP at 31 5/7 weeks 2. PROM 3. previous C/S 4. s/p steroids Rec: Monitor for labor , distress, chorioamnionitis Twice weekly testing , growth scans q3 weeks Delivery at 34 0/7 sooner if indicated Subjective - Subjective Date of service: 12/01/18 Principal diagnosis: 1. IUP 31w5d; 2. dichorionic twins; 3. PPROM Interval history: She has no complaints Denied contractions or bleeding Good movement is noted Patient reports: loss of fluid (continued from admission-small amount occasionally, clear, no odor), movement normal, no new complaints, no vaginal bleeding, no contractions Objective - Vital Signs Vital Signs: Vital Signs - 12hr 12/01/18 12/01/18 12/01/18 00:43 00:48 00:52 Temperature Pulse Rate 108 H 107 H 104 H Respiratory Rate Blood Pressure Blood Pressure [Left] O2 Sat by Pulse 93 95 94 Oximetry 12/01/18 12/01/18 12/01/18 00:53 03:37 03:38 Temperature 98.8 F Pulse Rate 112 H 112 H 102 H Respiratory 18 Rate Blood Pressure 111/53 Blood Pressure 111/53 [Left] O2 Sat by Pulse 95 97 Oximetry 12/01/18 12/01/18 12/01/18 04:17 04:22 04:27 Temperature Pulse Rate 98 H 112 H 109 H Respiratory Rate Blood Pressure Blood Pressure [Left] O2 Sat by Pulse 96 96 95 Oximetry 12/01/18 12/01/18 12/01/18 04:29 04:32 04:37 Temperature Pulse Rate 105 H 106 H 109 H Respiratory Rate Blood Pressure Blood Pressure [Left] O2 Sat by Pulse 94 96 95 Oximetry 12/01/18 12/01/18 12/01/18 04:39 04:42 04:47 Temperature Pulse Rate 108 H 100 H 98 H Respiratory Rate Blood Pressure Blood Pressure [Left] O2 Sat by Pulse 94 95 96 Oximetry 12/01/18 12/01/18 12/01/18 04:52 04:57 05:02 Temperature Pulse Rate 98 H 98 H 98 H Respiratory Rate Blood Pressure Blood Pressure [Left] O2 Sat by Pulse 95 95 96 Oximetry 12/01/18 12/01/18 12/01/18 05:07 05:12 05:17 Temperature Pulse Rate 101 H 88 100 H Respiratory Rate Blood Pressure Blood Pressure [Left] O2 Sat by Pulse 96 96 96 Oximetry 12/01/18 12/01/18 12/01/18 05:22 05:27 05:28 Temperature Pulse Rate 109 H 108 H 95 H Respiratory Rate Blood Pressure Blood Pressure [Left] O2 Sat by Pulse 96 95 94 Oximetry 12/01/18 12/01/18 12/01/18 05:32 05:37 05:42 Temperature Pulse Rate 109 H 108 H 101 H Respiratory Rate Blood Pressure Blood Pressure [Left] O2 Sat by Pulse 95 96 95 Oximetry 12/01/18 12/01/18 12/01/18 05:47 05:52 05:57 Temperature Pulse Rate 96 H 93 H 104 H Respiratory Rate Blood Pressure Blood Pressure [Left] O2 Sat by Pulse 95 95 96 Oximetry 12/01/18 12/01/18 12/01/18 06:02 06:07 06:12 Temperature Pulse Rate 105 H 92 H 100 H Respiratory Rate Blood Pressure Blood Pressure [Left] O2 Sat by Pulse 98 96 97 Oximetry 12/01/18 12/01/18 12/01/18 08:13 11:43 12:12 Temperature 98.6 F 98.2 F Pulse Rate 90 93 H 92 H Respiratory 16 12 Rate Blood Pressure 105/49 Blood Pressure 107/60 105/49 [Left] O2 Sat by Pulse 98 97 Oximetry - Exam Abdomen: Present: normal appearance, soft (non tender no palpable contractions ) Extremities: normal - Labs Labs: Abnormal Labs 11/16/18 12:55 RBC 3.19 L Hct 30.0 L RDW 12.4 L Lymph # 1.1 L Seg Neutrophils % 79.1 H - Results US- obstetric: report reviewed
--- NOTE | 2018-12-02 07:56 | Progress Note ---
Assessment and Plan BPP ordered today. Pt now on continuous EFM/toco d/t variables in FHT of baby A. Pt denies contractions. no abd tenderness, fever or foul odor to fluid. Continue current management. A: 1. ZACK twin IUP at 31 6/7 weeks 2. PROM 3. previous C/S 4. s/p steroids Rec: Monitor for labor , distress, chorioamnionitis Twice weekly testing , growth scans q3 weeks Delivery at 34 0/7 sooner if indicated - Patient Problems (1) Limited care in third trimester Current Visit: Yes Status: Acute (2) Premature rupture of membranes Current Visit: Yes Status: Acute Qualifiers: PROM onset of labor timing: unspecified duration between rupture of membranes and onset of labor PROM gestational age: -third trimester Qualified Code(s): O42.913 - premature rupture of membranes, unspecified as to length of time between rupture and onset of labor, third trimester (3) 31 weeks gestation of Current Visit: Yes Status: Acute Subjective - Subjective Date of service: 12/02/18 Principal diagnosis: 1. IUP 31w6d; 2. dichorionic twins; 3. PPROM Patient reports: loss of fluid (continued from admission-small amount occasionally, clear, no odor), movement normal, no new complaints, no vaginal bleeding, no contractions Objective - Vital Signs Vital Signs: Vital Signs - 12hr 12/01/18 12/01/18 12/01/18 20:32 20:59 21:01 Temperature 98.5 F Pulse Rate 108 H 92 H Respiratory 20 Rate Blood Pressure 120/58 O2 Sat by Pulse 96 Oximetry 12/01/18 12/01/18 12/01/18 21:04 21:06 21:11 Temperature Pulse Rate 93 H 96 H 97 H Respiratory Rate Blood Pressure 114/55 O2 Sat by Pulse 96 97 Oximetry 12/01/18 12/01/18 12/01/18 21:16 21:21 21:26 Temperature Pulse Rate 104 H 109 H 97 H Respiratory Rate Blood Pressure O2 Sat by Pulse 96 96 96 Oximetry 12/01/18 12/01/18 12/01/18 21:31 21:36 21:41 Temperature Pulse Rate 93 H 101 H 101 H Respiratory Rate Blood Pressure O2 Sat by Pulse 96 97 96 Oximetry 12/01/18 12/01/18 12/01/18 21:46 21:51 21:56 Temperature Pulse Rate 104 H 100 H 95 H Respiratory Rate Blood Pressure O2 Sat by Pulse 96 97 97 Oximetry 12/01/18 12/01/18 12/01/18 22:01 22:06 22:11 Temperature Pulse Rate 84 105 H 101 H Respiratory Rate Blood Pressure O2 Sat by Pulse 99 98 97 Oximetry 12/01/18 12/01/18 12/01/18 22:21 23:33 23:41 Temperature 98.4 F Pulse Rate 106 H 96 H Respiratory 20 Rate Blood Pressure O2 Sat by Pulse 96 96 Oximetry 12/01/18 12/01/18 12/01/18 23:43 23:45 23:46 Temperature 99.2 F Pulse Rate 109 H 102 H Respiratory 20 Rate Blood Pressure 126/60 O2 Sat by Pulse 94 96 Oximetry 12/01/18 12/01/18 12/02/18 23:51 23:56 00:01 Temperature Pulse Rate 97 H 101 H 114 H Respiratory Rate Blood Pressure O2 Sat by Pulse 97 96 97 Oximetry 12/02/18 12/02/18 12/02/18 00:06 00:11 00:16 Temperature Pulse Rate 97 H 100 H 98 H Respiratory Rate Blood Pressure O2 Sat by Pulse 96 97 97 Oximetry 12/02/18 12/02/18 12/02/18 00:21 00:26 00:31 Temperature Pulse Rate 97 H 109 H 103 H Respiratory Rate Blood Pressure O2 Sat by Pulse 96 96 97 Oximetry 12/02/18 12/02/18 12/02/18 00:36 00:41 00:46 Temperature Pulse Rate 88 93 H 110 H Respiratory Rate Blood Pressure O2 Sat by Pulse 96 97 96 Oximetry 12/02/18 12/02/18 12/02/18 00:51 00:56 01:01 Temperature Pulse Rate 102 H 102 H 101 H Respiratory Rate Blood Pressure O2 Sat by Pulse 97 97 96 Oximetry 12/02/18 12/02/18 12/02/18 01:06 01:11 01:13 Temperature Pulse Rate 108 H 101 H 104 H Respiratory Rate Blood Pressure O2 Sat by Pulse 96 96 94 Oximetry 12/02/18 12/02/18 12/02/18 01:16 01:21 01:26 Temperature Pulse Rate 101 H 95 H 109 H Respiratory Rate Blood Pressure O2 Sat by Pulse 97 97 97 Oximetry 12/02/18 12/02/18 12/02/18 01:31 01:36 01:40 Temperature 97.1 F L Pulse Rate 118 H 112 H Respiratory 20 Rate Blood Pressure O2 Sat by Pulse 95 96 Oximetry 12/02/18 12/02/18 12/02/18 01:41 01:46 01:51 Temperature Pulse Rate 125 H 102 H 111 H Respiratory Rate Blood Pressure O2 Sat by Pulse 96 96 95 Oximetry 12/02/18 12/02/18 12/02/18 01:56 02:01 02:06 Temperature Pulse Rate 113 H 102 H 99 H Respiratory Rate Blood Pressure O2 Sat by Pulse 96 97 97 Oximetry 12/02/18 12/02/18 12/02/18 02:11 02:16 02:21 Temperature Pulse Rate 108 H 110 H 108 H Respiratory Rate Blood Pressure O2 Sat by Pulse 97 97 97 Oximetry 12/02/18 12/02/18 12/02/18 02:26 02:29 02:31 Temperature Pulse Rate 100 H 114 H 91 H Respiratory Rate Blood Pressure O2 Sat by Pulse 95 94 95 Oximetry 12/02/18 12/02/18 12/02/18 02:35 02:36 02:41 Temperature Pulse Rate 98 H 105 H 109 H Respiratory Rate Blood Pressure O2 Sat by Pulse 94 94 93 Oximetry 12/02/18 12/02/18 12/02/18 02:49 02:50 02:51 Temperature 98.3 F Pulse Rate 93 H 106 H Respiratory 18 Rate Blood Pressure 118/58 O2 Sat by Pulse 96 93 Oximetry 12/02/18 12/02/18 12/02/18 02:54 02:59 03:04 Temperature Pulse Rate 102 H 102 H 97 H Respiratory Rate Blood Pressure O2 Sat by Pulse 95 96 97 Oximetry 12/02/18 12/02/18 12/02/18 03:09 03:10 03:14 Temperature Pulse Rate 103 H 100 H 94 H Respiratory Rate Blood Pressure O2 Sat by Pulse 94 94 96 Oximetry 12/02/18 12/02/18 12/02/18 03:19 03:24 03:29 Temperature Pulse Rate 107 H 97 H 91 H Respiratory Rate Blood Pressure O2 Sat by Pulse 97 96 95 Oximetry 12/02/18 12/02/18 12/02/18 03:34 03:39 03:44 Temperature Pulse Rate 101 H 100 H 106 H Respiratory Rate Blood Pressure O2 Sat by Pulse 98 95 97 Oximetry 12/02/18 12/02/18 12/02/18 03:49 03:54 03:59 Temperature Pulse Rate 90 100 H 94 H Respiratory Rate Blood Pressure O2 Sat by Pulse 96 98 96 Oximetry 12/02/18 12/02/18 12/02/18 04:04 04:09 04:14 Temperature Pulse Rate 89 96 H 96 H Respiratory Rate Blood Pressure O2 Sat by Pulse 97 96 97 Oximetry 12/02/18 12/02/18 12/02/18 04:19 04:20 04:24 Temperature Pulse Rate 92 H 89 89 Respiratory Rate Blood Pressure O2 Sat by Pulse 95 94 95 Oximetry 12/02/18 12/02/18 12/02/18 04:29 04:34 04:39 Temperature Pulse Rate 92 H 97 H 103 H Respiratory Rate Blood Pressure O2 Sat by Pulse 95 95 95 Oximetry 12/02/18 12/02/18 12/02/18 04:44 04:49 04:53 Temperature Pulse Rate 104 H 99 H 130 H Respiratory Rate Blood Pressure O2 Sat by Pulse 95 95 94 Oximetry 12/02/18 12/02/18 12/02/18 04:54 04:59 05:04 Temperature Pulse Rate 101 H 99 H 103 H Respiratory Rate Blood Pressure O2 Sat by Pulse 97 97 95 Oximetry 12/02/18 12/02/18 12/02/18 05:05 05:09 05:11 Temperature 98.3 F Pulse Rate 101 H 117 H 103 H Respiratory 20 Rate Blood Pressure 118/56 O2 Sat by Pulse 94 95 94 Oximetry 12/02/18 12/02/18 12/02/18 05:14 05:19 05:37 Temperature Pulse Rate 95 H 91 H 105 H Respiratory Rate Blood Pressure O2 Sat by Pulse 96 94 98 Oximetry 12/02/18 12/02/18 12/02/18 05:42 05:47 05:52 Temperature Pulse Rate 95 H 88 82 Respiratory Rate Blood Pressure O2 Sat by Pulse 97 98 97 Oximetry 12/02/18 12/02/18 12/02/18 05:57 06:02 06:07 Temperature Pulse Rate 85 94 H 96 H Respiratory Rate Blood Pressure O2 Sat by Pulse 98 97 98 Oximetry 12/02/18 12/02/18 12/02/18 06:12 06:17 06:22 Temperature Pulse Rate 102 H 94 H 104 H Respiratory Rate Blood Pressure O2 Sat by Pulse 97 98 99 Oximetry 12/02/18 12/02/18 12/02/18 06:27 06:32 06:37 Temperature Pulse Rate 94 H 94 H 92 H Respiratory Rate Blood Pressure O2 Sat by Pulse 99 100 97 Oximetry 12/02/18 12/02/18 12/02/18 06:42 06:47 06:52 Temperature Pulse Rate 98 H 103 H 95 H Respiratory Rate Blood Pressure O2 Sat by Pulse 97 99 98 Oximetry 12/02/18 12/02/18 12/02/18 06:57 07:02 07:07 Temperature Pulse Rate 98 H 108 H 109 H Respiratory Rate Blood Pressure O2 Sat by Pulse 97 98 97 Oximetry 12/02/18 12/02/18 12/02/18 07:12 07:17 07:22 Temperature Pulse Rate 112 H 98 H 104 H Respiratory Rate Blood Pressure O2 Sat by Pulse 98 99 97 Oximetry 12/02/18 07:27 Temperature Pulse Rate 98 H Respiratory Rate Blood Pressure O2 Sat by Pulse 98 Oximetry - Exam Breasts: normal Cardiovascular: Regular rate Lungs: Clear to auscultation, Normal air movement Abdomen: Present: normal appearance, soft, normal bowel sounds Vulva: both: normal Uterus: Present: normal FHR: category 1 Uterine Contraction Monitor Mode: External Uterine Contraction Pattern: Absent Uterine Tone Measurement Phase: Resting Extremities: normal Deep Tendon Reflex Grade: Normal +2 - Labs Labs: Abnormal Labs 11/16/18 12:55 RBC 3.19 L Hct 30.0 L RDW 12.4 L Lymph # 1.1 L Seg Neutrophils % 79.1 H
[2018-12-02] MEDS: PEPCID IV SCH (09:47)
[2018-12-02] MEDS: PRENATAL VITAMIN PO SCH (09:48)
--- NOTE | 2018-12-03 09:35 | Progress Note ---
Assessment and Plan - Patient Problems (1) 32 weeks gestation of Onset Date: ~12/03/18 Current Visit: Yes Status: Acute Plan to address problem: Pt w/o complaint of this AM NST reactive. Pt reports +FM from both babies. Spoke with Will keep early EDC 01-28-19 despite not being able to get documentation from the clinic pt went to. aware. A: 1. ZACK twin IUP at 32w0d weeks EDC 01-28-19 2. PROM 3. previous C/S 4. s/p steroids Rec: Monitor for labor , distress, chorioamnionitis Twice weekly testing , growth scans q3 weeks (BPP 8/8 X 2 on 12-02-18) Delivery at 34 0/7 sooner if indicated Subjective - Subjective Date of service: 12/03/18 (spoke with EDC 01-28-19 is what we will go by) Principal diagnosis: 1. IUP 32w0d; 2. dichorionic twins; 3. PPROM Patient reports: loss of fluid (continued from admission-small amount occasionally, clear, no odor), movement normal, no new complaints, no vaginal bleeding, no contractions Objective - Vital Signs Vital Signs: Vital Signs - 12hr 12/03/18 12/03/18 12/03/18 04:38 04:39 08:55 Temperature 98.5 F Pulse Rate 116 H 113 H 109 H Respiratory 14 Rate Blood Pressure 117/56 130/60 Blood Pressure 117/56 [Left] - Exam Breasts: normal Cardiovascular: Regular rate Lungs: Clear to auscultation, Normal air movement Abdomen: Present: normal appearance, soft, normal bowel sounds. Absent: distention, tenderness Uterus: Present: normal FHR: auscultation normal (NST reactive this AM) Uterine Contraction Monitor Mode: External Uterine Contraction Pattern: Absent Uterine Tone Measurement Phase: Resting Extremities: normal Deep Tendon Reflex Grade: Normal +2 - Labs Labs: Abnormal Labs 11/16/18 12:55 RBC 3.19 L Hct 30.0 L RDW 12.4 L Lymph # 1.1 L Seg Neutrophils % 79.1 H Laboratory Results - last 24 hr 12/02/18 07:55 Antibody Screen Negative
[2018-12-03] MEDS: PRENATAL VITAMIN PO SCH (10:26)
[2018-12-03] MEDS: PEPCID IV SCH ×2 (10:26→22:00)
--- NOTE | 2018-12-03 11:06 | Progress Note ---
Assessment and Plan A: 1. ZACK twin IUP at 32 0/7 weeks 2. PROM 3. previous C/S 4. s/p steroids Rec: Monitor for labor , distress, chorioamnionitis Twice weekly testing , growth scans q3 weeks Delivery at 34 0/7 sooner if indicated Subjective - Subjective Date of service: 12/03/18 Principal diagnosis: 1. IUP 32w0d; 2. dichorionic twins; 3. PPROM Interval history: She has no complaints Patient reports: loss of fluid (continued from admission-small amount occasionally, clear, no odor), movement normal, no new complaints, no vaginal bleeding, no contractions Objective - Vital Signs Vital Signs: Vital Signs - 12hr 12/03/18 12/03/18 12/03/18 04:38 04:39 08:55 Temperature 98.5 F Pulse Rate 116 H 113 H 109 H Respiratory 14 Rate Blood Pressure 117/56 130/60 Blood Pressure 117/56 [Left] 12/03/18 09:00 Temperature 98.7 F Pulse Rate Respiratory Rate Blood Pressure Blood Pressure [Left] - Exam Narrative Exam: laying in bed watching TV NAD Abdomen: Present: normal appearance, soft Extremities: normal - Labs Labs: Abnormal Labs 11/16/18 12:55 RBC 3.19 L Hct 30.0 L RDW 12.4 L Lymph # 1.1 L Seg Neutrophils % 79.1 H - Results US- obstetric: report reviewed
[2018-12-04] MEDS: PEPCID IV SCH (10:13)
[2018-12-04] MEDS: PRENATAL VITAMIN PO SCH (10:13)
[2018-12-04] MEDS: COLACE PO PRN (10:13)
--- NOTE | 2018-12-04 18:32 | Progress Note ---
Assessment and Plan - Patient Problems (1) 32 weeks gestation of Onset Date: ~12/03/18 Current Visit: Yes Status: Acute Plan to address problem: Continue POC as prescribed EDC now firm @ 01-28-19 Dr. Matamoros saw pt yesterday and confirmed the EDC 01-28-19 A: 1. ZACK twin IUP at 32 1/7 weeks 2. PROM 3. previous C/S 4. s/p steroids Rec: Monitor for labor , distress, chorioamnionitis Twice weekly testing , growth scans q3 weeks ( next BPP yobany and ordered for 12-05-18) Delivery at 34 0/7 sooner if indicated Subjective - Subjective Date of service: 12/04/18 (pt w/o complaint ; pt reports a very good day) Principal diagnosis: 1. IUP 32w1d; 2. dichorionic twins; 3. PPROM Patient reports: loss of fluid (continued from admission-small amount occasionally, clear, no odor), movement normal, no new complaints, no vaginal bleeding, no contractions Objective - Vital Signs Vital Signs: Vital Signs - 12hr 12/04/18 12/04/18 12/04/18 08:26 08:28 12:19 Temperature 98.1 F Pulse Rate 107 H 107 H 89 Respiratory 18 Rate Blood Pressure 113/68 120/59 Blood Pressure 113/68 [Left] 12/04/18 12/04/18 12/04/18 12:30 16:29 16:30 Temperature 97.6 F 98.2 F Pulse Rate 89 110 H 110 H Respiratory 18 18 Rate Blood Pressure 117/58 Blood Pressure 120/59 117/58 [Left] - Exam Breasts: deferred Cardiovascular: Regular rate Lungs: Normal air movement Abdomen: Present: normal appearance, soft, normal bowel sounds. Absent: distention, tenderness Uterus: Present: normal FHR: auscultation normal, category 1 (NST reactive for both babies) Uterine Contraction Monitor Mode: External Uterine Contraction Pattern: Irregular Uterine Contraction Intensity: Mild Extremities: normal Deep Tendon Reflex Grade: Normal +2 - Labs Labs: Abnormal Labs 11/16/18 12:55 RBC 3.19 L Hct 30.0 L RDW 12.4 L Lymph # 1.1 L Seg Neutrophils % 79.1 H
[2018-12-05] MEDS: PEPCID IV SCH ×2 (00:55→09:45)
--- NOTE | 2018-12-05 07:52 | Progress Note ---
Assessment and Plan Patient resting in bed. Reports "not feeling good". Patient reports contractions are more frequent this morning. Abdomen palpates soft. Order for continuous monitoring to be initiated at this time. Pt recent HR noted 120s-140s, order for continuous pulse ox. Current apical HR 128. Pt skin feels warm to touch and clammy, temp currently 98.8. No odor noted to amniotic fluid. CBC and IV fluid bolus ordered. Dr. Nguyen notified of patient assessment. Will await results of CBC and continue to monitor and follow [facility] recommendations for any changes to current POC. Subjective - Subjective Date of service: 12/05/18 Principal diagnosis: 1. IUP 32w2d; 2. dichorionic twins; 3. PPROM Patient reports: loss of fluid (continued from admission-pt reports "increased amount" today. Clear, no odor. ), movement normal, contractions (Pt reports ctx this morning, "a few an hour". Will place on monitor. ), no vaginal bleeding Objective - Vital Signs Vital Signs: Vital Signs - 12hr 12/04/18 12/04/18 12/04/18 19:52 20:00 23:47 Temperature 97.9 F Pulse Rate 102 H 102 H 120 H Respiratory 20 Rate Blood Pressure 123/58 132/67 Blood Pressure 123/58 [Left] 12/05/18 03:53 Temperature 98.9 F Pulse Rate 129 H Respiratory 16 Rate Blood Pressure 126/64 Blood Pressure [Left] - Exam Breasts: normal Cardiovascular: Regular rate (elevated apical HR 120 bpm, cont pulse ox placed to monitor HR) Lungs: Clear to auscultation Abdomen: Present: normal appearance, soft, normal bowel sounds. Absent: distention, tenderness Uterus: Present: normal FHR: auscultation normal (per most recent monitoring period. Will place on monitor now for c/o contractions. ) Uterine Contraction Monitor Mode: Palpation Uterine Tone Measurement Phase: Contraction Uterine Contraction Intensity: Mild Extremities: normal Deep Tendon Reflex Grade: Normal +2 - Labs Labs: Abnormal Labs 11/16/18 12:55 RBC 3.19 L Hct 30.0 L RDW 12.4 L Lymph # 1.1 L Seg Neutrophils % 79.1 H
[2018-12-05 08:51] LABS: Basophils % (Auto) 0.2 % (0.0-1.8); Eosinophils # (Auto) 0.1 K/mm3 (0.0-0.4); Eosinophils % (Auto) 0.3 % (0.0-4.3); Hematocrit 33.5 % (30.3-42.9); Hemoglobin 11.4 gm/dl (10.1-14.3); Lymphocytes # (Auto) 1.4 K/mm3 (1.2-5.4); Lymphocytes % (Auto) 7.9 % (13.4-35.0); Mean Corpuscular HGB Conc 34 % (30-34); Mean Corpuscular Volume 94 fl (79-97); Monocytes # (Auto) 1.4 K/mm3 (0.0-0.8); Monocytes % (Auto) 8.2 % (0.0-7.3); Platelet Count 224 K/mm3 (140-440); Red Blood Count 3.56 M/mm3 (3.65-5.03); Red Cell Distribution Width 13.1 % (13.2-15.2)
[2018-12-05] MEDS: PRENATAL VITAMIN PO SCH (09:50)
[2018-12-05] MEDS: COLACE PO PRN (09:50)
[2018-12-05] MEDS ORDERED: ZOFRAN IV PRN ×2 (11:30→17:48)
[2018-12-05] MEDS: LACTATED RINGERS 1,000 ML IV SCH ×2 (12:05→14:00)
--- NOTE | 2018-12-05 13:10 | Progress Note ---
Assessment and Plan 1. IUP at 32 2/7 weeks' 2. Twin gestation 3. PPROM [Twin A] 4. Previous C/S 5. Suspect intraamniotic infection 6. GDM Delivery is recommended 2 hour OGTT 6 weeks' Subjective - Subjective Date of service: 12/05/18 (Patient reports nausea, contractions; fetuses active) Principal diagnosis: 1. IUP 32w2d; 2. dichorionic twins; 3. PPROM Patient reports: loss of fluid (continued from admission-pt reports "increased amount" today. Clear, no odor. ), movement normal, contractions (Pt reports ctx this morning, "a few an hour". Will place on monitor. ), no vaginal bleeding Objective - Vital Signs Vital Signs: Vital Signs - 12hr 12/05/18 12/05/18 12/05/18 03:53 07:56 07:57 Temperature 98.9 F 98.6 F Pulse Rate 129 H 126 H 126 H Respiratory 16 18 Rate Blood Pressure 126/64 124/65 Blood Pressure 124/65 [Left] O2 Sat by Pulse Oximetry 12/05/18 12/05/18 12/05/18 08:03 08:08 08:13 Temperature Pulse Rate 130 H 124 H 128 H Respiratory Rate Blood Pressure Blood Pressure [Left] O2 Sat by Pulse 97 96 95 Oximetry 12/05/18 12/05/18 12/05/18 08:18 08:23 08:28 Temperature Pulse Rate 133 H 142 H 126 H Respiratory Rate Blood Pressure Blood Pressure [Left] O2 Sat by Pulse 97 97 98 Oximetry 12/05/18 12/05/18 12/05/18 08:33 08:38 08:43 Temperature Pulse Rate 127 H 121 H 119 H Respiratory Rate Blood Pressure Blood Pressure [Left] O2 Sat by Pulse 99 99 98 Oximetry 12/05/18 12/05/18 12/05/18 08:48 08:53 08:58 Temperature Pulse Rate 136 H 139 H 127 H Respiratory Rate Blood Pressure Blood Pressure [Left] O2 Sat by Pulse 97 98 97 Oximetry 12/05/18 12/05/18 12/05/18 09:03 09:08 09:13 Temperature Pulse Rate 134 H 136 H 138 H Respiratory Rate Blood Pressure Blood Pressure [Left] O2 Sat by Pulse 96 97 96 Oximetry 12/05/18 12/05/18 12/05/18 09:18 09:23 09:28 Temperature Pulse Rate 143 H 138 H 145 H Respiratory Rate Blood Pressure Blood Pressure [Left] O2 Sat by Pulse 96 96 96 Oximetry 12/05/18 12/05/18 12/05/18 09:33 09:38 09:43 Temperature Pulse Rate 134 H 128 H 126 H Respiratory Rate Blood Pressure Blood Pressure [Left] O2 Sat by Pulse 96 97 97 Oximetry 12/05/18 12/05/18 12/05/18 09:48 09:53 09:58 Temperature Pulse Rate 129 H 130 H 135 H Respiratory Rate Blood Pressure Blood Pressure [Left] O2 Sat by Pulse 96 98 97 Oximetry 12/05/18 12/05/18 12/05/18 10:03 10:15 10:20 Temperature Pulse Rate 145 H 122 H 131 H Respiratory Rate Blood Pressure Blood Pressure [Left] O2 Sat by Pulse 97 96 97 Oximetry 12/05/18 12/05/18 12/05/18 10:25 10:30 10:35 Temperature Pulse Rate 127 H 129 H 126 H Respiratory Rate Blood Pressure Blood Pressure [Left] O2 Sat by Pulse 98 97 96 Oximetry 12/05/18 12/05/18 12/05/18 10:40 10:45 10:50 Temperature Pulse Rate 123 H 135 H 135 H Respiratory Rate Blood Pressure Blood Pressure [Left] O2 Sat by Pulse 99 97 97 Oximetry 12/05/18 12/05/18 12/05/18 10:55 11:00 11:05 Temperature Pulse Rate 133 H 135 H 140 H Respiratory Rate Blood Pressure Blood Pressure [Left] O2 Sat by Pulse 97 98 97 Oximetry 12/05/18 12/05/18 12/05/18 11:10 11:15 11:20 Temperature Pulse Rate 134 H 145 H 140 H Respiratory Rate Blood Pressure Blood Pressure [Left] O2 Sat by Pulse 97 96 96 Oximetry 12/05/18 12/05/18 12/05/18 11:25 11:26 11:30 Temperature Pulse Rate 137 H 133 H 137 H Respiratory Rate Blood Pressure Blood Pressure [Left] O2 Sat by Pulse 96 94 96 Oximetry 12/05/18 12/05/18 12/05/18 11:32 11:35 11:38 Temperature Pulse Rate 144 H 132 H 125 H Respiratory Rate Blood Pressure Blood Pressure [Left] O2 Sat by Pulse 94 94 94 Oximetry 12/05/18 12/05/18 12/05/18 11:40 11:43 11:45 Temperature Pulse Rate 131 H 131 H 131 H Respiratory Rate Blood Pressure Blood Pressure [Left] O2 Sat by Pulse 95 94 94 Oximetry 12/05/18 12/05/18 12/05/18 11:50 11:52 12:04 Temperature Pulse Rate 128 H 132 H 144 H Respiratory Rate Blood Pressure Blood Pressure [Left] O2 Sat by Pulse 97 94 97 Oximetry 12/05/18 12/05/18 12/05/18 12:09 12:14 12:18 Temperature 99.0 F Pulse Rate 144 H 143 H 135 H Respiratory 18 Rate Blood Pressure Blood Pressure 124/65 [Left] O2 Sat by Pulse 97 96 97 Oximetry 12/05/18 12/05/18 12/05/18 12:19 12:24 12:25 Temperature Pulse Rate 148 H 135 H 120 H Respiratory Rate Blood Pressure Blood Pressure [Left] O2 Sat by Pulse 97 95 94 Oximetry 12/05/18 12/05/18 12/05/18 12:29 12:32 12:34 Temperature Pulse Rate 137 H 128 H 120 H Respiratory Rate Blood Pressure Blood Pressure [Left] O2 Sat by Pulse 94 94 95 Oximetry 12/05/18 12/05/18 12/05/18 12:38 12:39 12:44 Temperature Pulse Rate 125 H 128 H 125 H Respiratory Rate Blood Pressure Blood Pressure [Left] O2 Sat by Pulse 94 92 96 Oximetry 12/05/18 12/05/18 12/05/18 12:49 12:53 12:54 Temperature Pulse Rate 130 H 124 H 125 H Respiratory Rate Blood Pressure Blood Pressure [Left] O2 Sat by Pulse 97 94 94 Oximetry 12/05/18 12:59 Temperature Pulse Rate 120 H Respiratory Rate Blood Pressure Blood Pressure [Left] O2 Sat by Pulse 97 Oximetry - Exam Narrative Exam: Abd soft, mildly to moderately tender to palpation; FHT's reassuring but rates of 160-170; DTR 1-2+; RGS [12/05/18]: 228 mg% - Labs Labs: Abnormal Labs 11/16/18 12/05/18 12:55 08:32 WBC 17.5 H RBC 3.19 L 3.56 L Hct 30.0 L RDW 12.4 L 13.1 L Lymph % (Auto) 7.9 L Chambers % (Auto) 8.2 H Lymph # 1.1 L Chambers # 1.4 H Seg Neutrophils % 79.1 H 83.4 H Seg Neutrophils # 14.6 H Laboratory Results - last 24 hr 12/05/18 12/05/18 06:00 08:32 WBC 17.5 H RBC 3.56 L Hgb 11.4 Hct 33.5 MCV 94 MCH 32 MCHC 34 RDW 13.1 L Plt Count 224 Lymph % (Auto) 7.9 L Chambers % (Auto) 8.2 H Eos % (Auto) 0.3 Baso % (Auto) 0.2 Lymph # 1.4 Chambers # 1.4 H Eos # 0.1 Baso # 0.0 Seg Neutrophils % 83.4 H Seg Neutrophils # 14.6 H Gest Glucose Tolerance
--- NOTE | 2018-12-05 13:31 | Anesthesia Consultation ---
Anesthesia Consult and Med Hx - Airway Anesthetic Teeth Evaluation: Good ROM Head & Neck: Adequate Mental/Hyoid Distance: Adequate Mallampati Class: Class I Intubation Access Assessment: Good - Pulmonary Exam CTA: Yes - Cardiac Exam Cardiac Exam: RRR - Pre-Operative Health Status ASA Pre-Surgery Classification: ASA2 Proposed Anesthetic Plan: Epidural, Spinal - Pulmonary Hx Smoking: No Hx Asthma: No - Cardiovascular System Hx Hypertension: No - Central Nervous System Hx Seizures: No Hx Psychiatric Problems: No - Endocrine Hx Renal Disease: No Hx Hypothyroidism: No Hx Hyperthyroidism: No - Hematic Hx Anemia: No Hx Sickle Cell Disease: No - Other Systems Hx Alcohol Use: No
--- NOTE | 2018-12-05 13:32 | Anesthesia Day of Surgery ---
Anesthesia Day of Surgery - Day of Surgery Patient Examined: Yes Patient H&P Reviewed: Yes Patient is NPO: Yes Beta Blockers: No Cardiac Clearance: No Pulmonary Clearance: No Jose's Test: N/A
[2018-12-05] MEDS ORDERED: PHENERGAN PR PRN (13:33)
[2018-12-05] MEDS ORDERED: PHENERGAN PO PRN (13:33)
[2018-12-05] MEDS ORDERED: DILAUDID IV PRN (13:33)
[2018-12-05] MEDS ORDERED: NARCAN 0.4 MG/1 ML IV PRN ×2 (13:33→17:48)
[2018-12-05] MEDS ORDERED: ZOFRAN ONE (13:48)
[2018-12-05] MEDS ORDERED: SENSORCAINE/DEXTR 0.75-8.25% INFILTRATI ONE (13:48)
[2018-12-05] MEDS ORDERED: ASTRAMORPH PF 10MG/10ML ONE (13:48)
[2018-12-05] MEDS ORDERED: PITOCin/NS 20 UNIT/1000ML DRIP 20,000 MILLIUNITS/1,000 ML BAG IV ONE ×2 (13:56→16:11)
[2018-12-05] MEDS ORDERED: SODIUM CHLORIDE FLUSH SYRINGE 10 ML IV NR (14:00)
[2018-12-05] MEDS ORDERED: ANCEF/STERILE WATER 2 GM/20 ML IV NR (14:00)
[2018-12-05] MEDS ORDERED: REGLAN IV NR (14:00)
[2018-12-05] MEDS ORDERED: XYLOCAINE 2%/ EPI 1:200,000 INFILTRATI ONE (14:12)
[2018-12-05] MEDS ORDERED: BICITRA PO ONE (14:12)
--- NOTE | 2018-12-05 14:18 | Event Note ---
Date: 12/05/[address] Amor. Indications for delivered discussed with patient..Patient informed the risks of the surgery include bleeding possibly b leeding heavy enough to require blood transfusion, infection possible damage to bowel bladder ureter. All questions answered. Patient agrees to proceed. Patient desires permanent sterilization. She declined temporary contraceptives. She understands the risks of the surgery include bleeding infection possible damage to bowel bladder or ureters. She understands that this surgery would make her permanently sterile. She also understands the approximate 1% failure rate. The patient understands all the above and desires to proceed.
[2018-12-05] MEDS ORDERED: WATER FOR IRRIG STERILE IR ONE (14:40)
[2018-12-05] MEDS ORDERED: NEO SYNEPHRINE/NS Syringe(OR USE) IV ONE ×4 (14:40→15:19)
[2018-12-05] MEDS ORDERED: NACL 0.9% IR ONE (14:40)
[2018-12-05] MEDS ORDERED: TORADOL ONE (15:13)
[2018-12-05] MEDS ORDERED: BREVIBLOC IV ONE (15:17)
[2018-12-05] MEDS ORDERED: DILAUDID ONE (15:31)
--- NOTE | 2018-12-05 15:59 | Operative Report ---
Operative Report Operative Report: Date of procedure: 12/05/2018 Pre-operative diagnosis: Twin at 32 weeks 2 days, twin gestation, pret erm premature rupture membranes, gestational diabetes, probable chorioamnionitis, previous section and desires permanent sterilization Post-operative diagnosis: Same Procedure name(s): P low-transverse section with bilateral tubal ligation modified Andrews type Surgeon: Elijah Nguyen MD Pvc Loader: Josephine culvernca certified concierge Anesthesia: Spinal EBL: Thousand cc Complications: None Findings: Uterus tubes and ovaries bilaterally. Twin A breech presentation female infant. Twin B also female infant reach presentation. Weight and Apgars be given later by the team Specimen(s): Portion right left fallopian tube and placenta Procedure: The patient was brought to the operating room. A spinal was placed without any complications. She was then placed in left lateral tilt. Prepped and draped in the usual sterile manner. After testing for adequate anesthesia level, a Pfannenstiel incision was made through her previous scar. This incis ion was taken down to the fascia. The fascia was then nicked in the midline. This incision was extended out laterally with Nickerson scissors. The fascia was then sharply and bluntly from the underlying rectus muscles. The rectus muscles were bluntly and sharply . The peritoneum was then entered with the unit operator's fingers. This incision was spread vertically with care not to damage the bladder below. The bladder flap was then formed sharply and bluntly with Metzenbaum scissors. The Cristhian self-retaining tractor was then placed without any difficulty. A transverse incision was made in lower uterine segment. This incision was extended laterally with the operators fingers. Twin A was brittany breech. The breech was then delivered and the left and right legs were flexed at the knees and delivered through the incision both arms were then swept flexion of the elbow and the after coming head was delivered. Cord was double clamped and cut and infant passed to the nursery personnel present. The amniotic sac of twin B was ruptured. The was delivered from the limbus breech position. Patient's feet were grasped through the uterine incision the breech was pulled through the incision gently and pressure on the hips the arms were swept with complex and the elbows and then the after coming head was easily delivered through the incision. Bulb suction on the mother's abdomen. Cord was double clamped and cut. The infant was then passed to the nursery personnel who were in attendance. The placenta was then bluntly removed. The uterus was then externalized and wiped clean the remaining products. The uterine incision was closed in layers. The first incision was closed in a locking manner using 0 Vicryl. This was followed by imbricating stitch also with 0 Vicryl. Attention was then switched to the patient's fallopian tubes. Each fallopian tube was identified by its fimbriated end. A portion of each tube was grabbed with the Toan clamp approximately 2-3 cm from the cornua. Each loop was double ligated with 0 plain suture. The loop were cut with Metzenbaum scissors. Each stump was found to be hemostatic and cauterized with the Bovie. Attention was then switched back to the uterine closure. This closure was hemostatic. The bladder flap was copiously irrigated and found to be hemostatic. The pelvis was copiously irrigated and found to be hemostatic. The uterus was then placed back to the patient's abdomen. The retractors were removed. The rectus muscles were inspected and found to be hemostatic. The fascia was then closed in a running manner using 0 Vicryl. This incision was hemostatic irrigation Bovie. The skin was reapproximated with 4-0 Vicryl subcuticularly. The patient tolerated procedure well. Her urine was clear. The infants were admitted to the intensive intensive care unit. The patient tolerated procedure well. The patient was accompanied to recovery room in good condition. Instrument count correct 3.
[2018-12-05] MEDS ORDERED: MYLICON PO PRN (17:48)
[2018-12-05] MEDS ORDERED: MILK OF MAGNESIA PO PRN (17:48)
[2018-12-05] MEDS ORDERED: SODIUM CHLORIDE FLUSH SYRINGE 10 ML IV SCH (17:48)
[2018-12-05] MEDS ORDERED: PITOCin/NS 20 UNIT/1000ML DRIP 20 UNITS/1,000 ML BAG IV SCH (17:48)
[2018-12-05] MEDS ORDERED: LANSINOH TP PRN (17:48)
[2018-12-05] MEDS ORDERED: TUCKS PAD TP PRN (17:48)
[2018-12-05] MEDS ORDERED: D5LR 1,000 ML IV SCH (18:48)
[2018-12-05] MEDS: TORADOL IV SCH (20:16)
[2018-12-05] MEDS: ANCEF/NS 1 GM/50 ML 1 GM/50 ML BAG IV SCH (21:54)
[2018-12-06] MEDS: TORADOL IV SCH ×2 (01:56→10:23)
[2018-12-06 04:18] LABS: Hematocrit 26.9 % (30.3-42.9); Hemoglobin 9.2 gm/dl (10.1-14.3)
[2018-12-06] MEDS: ANCEF/NS 1 GM/50 ML 1 GM/50 ML BAG IV SCH (05:29)
--- NOTE | 2018-12-06 06:43 | Progress Note ---
Assessment and Plan - Patient Problems (1) delivery delivered Onset Date: ~12/05/18 Current Visit: Yes Status: Acute Plan to address problem: Pt alert and oriented No c/o pain VSS FF below umb Lochia scant Dressing D&I H&H 07/13 drop r/t blood loss from surgery Doing well s/p rC/S P: continue pathway Advance diet and activity as tolerated. Subjective - Subjective Date of service: 12/06/18 (pt w/o complaint) Principal diagnosis: Day #0 repeat section TWINS Patient reports: voiding normally, pain well controlled, ambulating normally : in NICU Objective - Vital Signs Latest vital signs: Vital Signs Temp Pulse Resp BP BP Pulse Ox 12/06/18 00:30 98.7 F 80 18 119/72 12/05/18 20:00 98.7 F 88 18 135/70 12/05/18 17:59 98.4 F 109 H 16 108/48 96 12/05/18 17:05 98.1 F 109 H 16 104/46 95 12/05/18 16:50 101 H 14 105/49 95 12/05/18 16:35 103 H 14 105/47 95 12/05/18 16:20 100 H 14 103/48 95 12/05/18 16:15 103 H 14 106/45 96 12/05/18 16:10 104 H 14 104/52 96 12/05/18 16:02 97.8 F 109 H 14 110/54 96 12/05/18 13:19 122 H 97 12/05/18 13:14 119 H 97 12/05/18 13:09 120 H 99 12/05/18 13:04 120 H 99 12/05/18 12:59 120 H 97 12/05/18 12:54 125 H 94 12/05/18 12:53 124 H 94 12/05/18 12:49 130 H 97 12/05/18 12:44 125 H 96 12/05/18 12:39 128 H 92 12/05/18 12:38 125 H 94 12/05/18 12:34 120 H 95 12/05/18 12:32 128 H 94 12/05/18 12:29 137 H 94 12/05/18 12:25 120 H 94 12/05/18 12:24 135 H 95 12/05/18 12:19 148 H 97 02/18/19 12:18 99.0 F 135 H 18 124/65 97 0218/19 12:14 143 H 96 0218/19 12:09 144 H 97 0218/19 12:04 144 H 97 18/19 11:52 132 H 94 0218/19 11:50 128 H 97 18/19 11:45 131 H 94 18/19 11:43 131 H 94 18/19 11:40 131 H 95 18/19 11:38 125 H 94 18/19 11:35 132 H 94 18/19 11:32 144 H 94 18/19 11:30 137 H 96 18/19 11:26 133 H 94 18/19 11:25 137 H 96 18/19 11:20 140 H 96 18/19 11:15 145 H 96 18/19 11:10 134 H 97 18/19 11:05 140 H 97 19 11:00 135 H 98 12/05/19 10:55 133 H 97 12/05/19 10:50 135 H 97 12/05/19 10:45 135 H 97 18/19 10:40 123 H 99 12/05/19 10:35 126 H 96 18/19 10:30 129 H 97 18/19 10:25 127 H 98 18/19 10:20 131 H 97 18/19 10:15 122 H 96 18/19 10:03 145 H 97 18/19 09:58 135 H 97 18/19 09:53 130 H 98 0218/19 09:48 129 H 96 0218/19 09:43 126 H 97 0218/19 09:38 128 H 97 0218/19 09:33 134 H 96 0218/19 09:28 145 H 96 0218/19 09:23 138 H 96 0218/19 09:18 143 H 96 0218/19 09:13 138 H 96 0218/19 09:08 136 H 97 0218/19 09:03 134 H 96 18/19 08:58 127 H 97 18/19 08:53 139 H 98 18/19 08:48 136 H 97 02/18/19 08:43 119 H 98 12/05/18 08:38 121 H 99 12/05/18 08:33 127 H 99 12/05/18 08:28 126 H 98 12/05/18 08:23 142 H 97 12/05/18 08:18 133 H 97 12/05/18 08:13 128 H 95 12/05/18 08:08 124 H 96 12/05/18 08:03 130 H 97 12/05/18 07:57 98.6 F 126 H 18 124/65 12/05/18 07:56 126 H 124/65 Intake and Output 12/05/18 12/05/18 12/06/18 14:59 22:59 06:59 Intake Total 0183.179 6559 Output Total 300 200 450 Balance 449.340 6168 -450 Intake: IV 4925.276 0107 ANCEF/NS 1 GM/50 ML 1 gm 50 In 50 ml @ 100 mls/hr IV Q8H [facility] Rx#:[id number] Lactated Ringers 1,000 ml 239.583 @ 125 mls/hr IV DIRECT [facility] Rx#:[id number] Output: Urine 300 200 450 Indwelling Catheter 300 450 Uretheral (Montiel) 50 Other: Total, Output Amount 300 200 Estimated Blood Loss 1,500 - Exam Breasts: Present: normal Cardiovascular: Present: Regular rate Lungs: Present: Clear to auscultation Abdomen: Present: normal appearance, soft Uterus: Present: normal, fundal height below umbilicus Extremities: Present: normal Deep Tendon Reflex Grade: Normal +2 Incision: Present: normal, dry, intact, dressed (to be removed today) - Labs Labs: Abnormal lab results 12/05/18 12/06/18 Range/Units 08:32 03:38 WBC 17.5 H (4.5-11.0) K/mm3 RBC 3.56 L (3.65-5.03) M/mm3 Hgb 9.2 L (10.1-14.3) gm/dl Hct 26.9 L D (30.3-42.9) % RDW 13.1 L (13.2-15.2) % Lymph % (Auto) 7.9 L (13.4-35.0) % [place] % (Auto) 8.2 H (0.0-7.3) % [place] # 1.4 H (0.0-0.8) K/mm3 Seg Neutrophils % 83.4 H (40.0-70.0) % Seg Neutrophils # 14.6 H (1.8-7.7) K/mm3
[2018-12-06] MEDS: FEOSOL PO SCH (10:24)
[2018-12-06] MEDS: PRENATAL VITAMIN PO SCH (10:24)
[2018-12-06] MEDS: IBUPROFEN PO PRN ×2 (17:12→22:58)
[2018-12-06] MEDS: NORCO 5/325 PO PRN ×2 (17:13→22:58)
[2018-12-07] MEDS: IBUPROFEN PO PRN (05:44)
--- NOTE | 2018-12-07 08:01 | Discharge Summary ---
Providers - Providers Date of Admission: 11/16/18 11:50 Date of discharge: 12/07/18 (desires d/c home today) Attending physician: MELISSA NAM 12/05/18 17:48 Consult to Airport Traffic Controller [CONS] Routine Reason For Exam: Primary care physician: MELISSA NAM Hospitalization Reason for admission: PPROM, twin gestation Condition: Good Pertinent studies: postop H&H 9.2/26.9 (asymptomatic anemia from blood loss, acute) Procedures: repeat c/s Hospital course: repeat c/s and course uncomplicated Disposition: DC-01 TO HOME OR SELFCARE - Discharge Diagnoses (1) delivery delivered Status: Acute Core Measure Documentation - Palliative Care Palliative Care/ Comfort Measures: Not Applicable - Core Measures Any of the following diagnoses?: none Exam - Constitutional Vitals: Temp Pulse Resp BP Pulse Ox 98.1 F 97 H 18 108/55 100 12/07/18 00:36 12/07/18 00:36 12/07/18 00:36 12/07/18 00:36 12/07/18 00:36 General appearance: Present: no acute distress, well-nourished - EENT Eyes: Present: PERRL ENT: hearing intact, clear oral mucosa - Neck Neck: Present: supple, normal ROM - Respiratory Respiratory effort: normal Respiratory: bilateral: CTA - Cardiovascular Heart Sounds: Present: S1 & S2. Absent: rub, click - Extremities Extremities: pulses symmetrical, No edema Peripheral Pulses: within normal limits - Abdominal General gastrointestinal: Present: soft, non-tender, non-distended, normal bowel sounds Female genitourinary: Present: normal - Integumentary Integumentary: Present: clear, warm, dry - Musculoskeletal Musculoskeletal: gait normal, strength equal bilaterally - Psychiatric Psychiatric: appropriate mood/affect, intact judgment & insight - Neurologic Neurologic: CNII-XII intact, moves all extremities - Additional findings Additional findings: locgua scant, fundus firm, incision D&I, pumping breast milk for infants in NICU Plan Activity: advance as tolerated Diet: regular Wound: open to air, keep clean and dry Follow up with: MELISSA NAM MD [Primary Care Provider] - 7 Days (Congratulations!! Please call [phone] to schedule your incision check in 1 week. Call for any questions or concerns. ) Prescriptions: Ferrous Sulfate [Feosol 325 MG tab] 325 mg PO BID #60 tablet Ibuprofen [Motrin 800 MG tab] 800 mg PO Q6H PRN #30 tablet PRN Reason: Pain oxyCODONE /ACETAMINOPHEN [Percocet 5/325 mg] 1 - 2 tab PO Q4H PRN #30 tablet PRN Reason: Pain, Moderate
[2018-12-07] MEDS: NORCO 5/325 PO PRN (13:10)
[2018-12-07] MEDS: FEOSOL PO SCH (13:10)
[2018-12-07] MEDS: PRENATAL VITAMIN PO SCH (13:10)
[2018-12-07 16:15] VITALS: BP 95/33
--- NOTE | 2018-12-09 15:25 | Ultrasound Report ---
FINAL REPORT EXAM: US OB FOLLOWUP EA ADD GESTAT HISTORY: GROWTH SCAN; TWINS; FWB TECHNIQUE: Standard obstetrical ultrasound PRIORS: Ultrasound 11/20/2018 FINDINGS: LMP: 04/23/2018 clinical Age: 31 w 3 d LMP EDC 01/28/2019 BABY A US Age (average) = 29 w 5 d EFW (BPD,HC,AC,FL) = 1376 g +/- 204 g (3 lbs. 1 Oz. +/- 7 oz.) EDC 02/09/2019 CI 87.6 (range 74 to 83) HC/AC 1.15 (range 0.96 to 1.17) FL/BPD 78.4 (range 71.3 to 87.3) FL/HC 20.7 (range 17.3 to 23.3) FL/AC 23.9 (range 20 to 24) BPD 7.3 cm corresponding to age 29 weeks 4 days HC 27.9 cm corresponding to age 30 weeks 4 days AC 24.2 cm corresponding to age 28 weeks 3 days FL 5.8 cm corresponding to age 30 weeks 2 days Presentation: Transverse with the head to the maternal left. Activity: Monitored Placental location: Anterior Placental grade: 1 Cardiac motion: 141 BPM using M-mode doppler Amniotic Fluid Volume: Adequate with largest pocket 2.9 cm BABY B US Age (average) = 30 w 0 d EFW (BPD,HC,AC,FL) = 1449 g +/- 214g (3lbs 3 oz. +/- 8 oz.) EDC 02/07/2019 CI 76.8 (range 74 to 83) HC/AC 1.11 (range 1.0 to 1.17) FL/BPD 72 (range 71.3 to 87.3) FL/HC 18.2 (range 17.3 to 23.3) FL/AC 20.1 (range 20 to 24) BPD 7.3 cm corresponding to age 29 weeks 3 days HC 29.1 cm corresponding to age 32 weeks 0 days AC 26.3 cm corresponding to age 30 weeks 3 days FL 5.3 cm corresponding to age 28 weeks 1 day Presentation: Transverse with head to the maternal right Activity: Monitored Placental location: Anterior Placental grade: 1 Cardiac motion: 156 BPM using M-mode doppler Amniotic Fluid Volume: Adequate with largest pocket measuring 4.0 cm IMPRESSION: Twin intrauterine viable with an approximate age of 30 weeks 0 days with MICHAEL 02/07/2019.
--- NOTE | 2018-12-13 12:55 | Ultrasound Report ---
FINAL REPORT EXAM: US OB BPP EA ADD EXAM HISTORY: twins COMPARISON: Biophysical profile score performed on 11/29/2018 TECHNIQUE: Biophysical profile score for baby B was performed. FINDINGS: Biophysical profile score: breathing movement: 2 movement: 2 posterior and tone: 2 Qualitative amniotic fluid volume: 2 Total score: 8 heart rate is 112 beats per minute. IMPRESSION: Normal biophysical profile score of 8.
--- NOTE | 2018-12-14 09:28 | Ultrasound Report ---
FINAL REPORT EXAM: US OB BPP WO NON-STRESS HISTORY: twins COMPARISON: Biophysical profile score performed on 11/29/2018 TECHNIQUE: Biophysical profile score for baby A was performed. FINDINGS: Biophysical profile score: breathing movement: 2 movement: 2 posterior and tone: 2 Qualitative amniotic fluid volume: 2 Total score: 8 heart rate is 149 beats per minute. IMPRESSION: Normal biophysical profile score of 8.
== END 2018-12-07 18:37 | disposition home or self-care (01) | DRG 765 ==
LOC: LD 11:12 → OBSVTOIN 11:50 → OB 12-05 17:38
PROVIDERS: ADMIT Obstetrics & Gynecology; ATTEND Obstetrics & Gynecology
PROC: 10D00Z1 Extraction of Products of Conception, Low, Open Approach (ICD-10-PCS; principal; 2018-12-05)
PROC: 0UL70ZZ Occlusion of Bilateral Fallopian Tubes, Open Approach (ICD-10-PCS; 2018-12-05)
DX: O34.211 Maternal care for low transverse scar from previous cesarean delivery (principal); O41.1230 Chorioamnionitis, third trimester, not applicable or unspecified; O42.913 Preterm premature rupture of membranes, unspecified as to length of time between rupture and onset of labor, third trimester; O99.324 Drug use complicating childbirth; O24.429 Gestational diabetes mellitus in childbirth, unspecified control; O30.043 Twin pregnancy, dichorionic/diamniotic, third trimester; O99.02 Anemia complicating childbirth; D62 Acute posthemorrhagic anemia; Z3A.32 32 weeks gestation of pregnancy; Z37.2 Twins, both liveborn
CPT/HCPCS: 36415; 76805; 76810; 76816; 76819; 80307; 82951; 85014; 85018; 85025; 86592; 86706; 86762; 86803; 86850; 86900; 86901; 87086; 87116; 87806; 88302; 88307; G0378; G0379; J0290; J0690; J1100; J1170; J1885; J2274; J2370; J2405; J2590; J2765; J7120; J7121

== ENCOUNTER 2019-11-25 21:47 | Emergency (ER) | payer SELFPAY ==
[2019-11-25] MEDS ORDERED: ONDANSETRON 4 MG ODT TAB PO ONE (22:59)
--- NOTE | 2019-11-25 23:06 | Emergency Department Report ---
Chief Complaint: Abdominal Pain Stated Complaint: ABD PAIN - HPI History of Present Illness: The pt is a 34 y/o F p/w a cc of AP, cough nvd. 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 Pt now has SERA AP n/v/d - Exam Vital Signs: Vital Signs 11/25/19 21:51 Temperature 99.2 F Pulse Rate 93 H Respiratory 18 Rate Blood Pressure 145/87 O2 Sat by Pulse 95 Oximetry MSE screening note: Focused history and physical exam performed. Due to findings the following was ordered: cbc, cmp, lipase, rapid flu, cxr, shcg zofran ED Disposition for MSE Condition: Stable Instructions: Abdominal Pain (ED)
[2019-11-25 23:58] LABS: Basophils % (Auto) 0.5 % (0.0-1.8); Eosinophils % (Auto) 0.3 % (0.0-4.3); Hemoglobin 14.1 gm/dl (10.1-14.3); Lymphocytes # (Auto) 1.8 K/mm3 (1.2-5.4); Lymphocytes % (Auto) 49.7 % (13.4-35.0); Mean Corpuscular HGB Conc 34 % (30-34); Mean Corpuscular Volume 94 fl (79-97); Monocytes # (Auto) 0.4 K/mm3 (0.0-0.8); Monocytes % (Auto) 10.4 % (0.0-7.3); Platelet Count 167 K/mm3 (140-440); Red Blood Count 4.46 M/mm3 (3.65-5.03); Red Cell Distribution Width 12.4 % (13.2-15.2)
[2019-11-26 00:14] LABS: Alanine Aminotransferase 17 units/L (7-56); Albumin 4.6 g/dL (3.9-5); BUN/Creatinine Ratio 8; Blood Urea Nitrogen 6 mg/dL (7-17); Calcium 9.2 mg/dL (8.4-10.2); Hemolysis Index 5
--- NOTE | 2019-11-26 01:11 | XRay Report ---
CHEST 2 VIEWS INDICATION / CLINICAL INFORMATION: cough. COMPARISON: None available. FINDINGS: SUPPORT DEVICES: None. HEART / MEDIASTINUM: No significant abnormality. LUNGS / PLEURA: Mild left basilar opacities likely represent atelectasis. The lungs are otherwise izzy ar. No significant pleural effusion. No pneumothorax. ADDITIONAL FINDINGS: No significant additional findings. IMPRESSION: 1. No acute abnormality of the chest. 2. Probable left basilar atelectasis. Signer Name: Malcolm Leblanc MD Signed: 11/26/2019 1:07 AM Workstation Name: [id number]
--- NOTE | 2019-11-26 01:38 | Emergency Department Report ---
- General Chief Complaint: Abdominal Pain Stated Complaint: ABD PAIN Time Seen by Provider: 11/26/19 00:54 Source: patient Mode of arrival: Ambulatory Limitations: No Limitations - History of Present Illness Initial Comments: Patient is 34-year-old [place] female who is presenting with cough cold congestion and fever for the past 3 days. Patient is also having nausea vomiting states she's been unable to keep anything down for the last day. MD Complaint: fever, cough, rhinorrhea, nasal congestion Improves With: nothing Worsens With: nothing Context: sick contacts (son is sick as well) Associated Symptoms: fever, chills, myalgias, diaphoresis, rhinorrhea, nasal congestion, cough, shortness of breath, nausea, vomiting. denies: stiff neck, chest pain, abdominal pain, diarrhea, dysuria, confusion, right sweats, weight loss, epistaxis, hoarseness - Related Data Previous Rx's Medication Instructions Recorded Last Taken Type Ferrous Sulfate [Feosol 325 MG tab] 325 mg PO BID #60 tablet 12/06/18 Unknown Rx Ibuprofen [Motrin 800 MG tab] 800 mg PO Q6H PRN #30 tablet 12/06/18 Unknown Rx oxyCODONE /ACETAMINOPHEN [Percocet 1 - 2 tab PO Q4H PRN #30 tablet 12/06/18 Unknown Rx 5/325 mg] Albuterol INH(or & Nicu Only) 2 puff IH QID PRN #1 inhalation 11/26/19 Unknown Rx [ProAir HFA Inhaler] Azithromycin [Zithromax Z-MARA] 250 mg PO DAILY #6 tablet 11/26/19 Unknown Rx Ondansetron [Zofran Odt] 4 mg PO Q8HR #10 tab.rapdis 11/26/19 Unknown Rx guaiFENesin/CODEINE [Robitussin AC] 5 ml PO Q6HR PRN #100 oral.liqd 11/26/19 Unknown Rx predniSONE [Deltasone] 20 mg PO QDAY #5 tab 11/26/19 Unknown Rx Allergies Allergy/AdvReac Type Severity Reaction Status Date / Time No Known Allergies Allergy Verified 12/21/16 17:10 ED Review of Systems ROS: Stated complaint: ABD PAIN Other details as noted in HPI Comment: All other systems reviewed and negative ED Past Medical Hx - Past Medical History Previous Medical History?: Yes Hx Hypertension: No Hx Diabetes: No Hx Deep Vein Thrombosis: No Hx Renal Disease: No Hx Sickle Cell Disease: No Hx Seizures: No Hx Kidney Stones: Yes Hx Asthma: No Hx HIV: No - Surgical History Past Surgical History?: Yes Additional Surgical History: breast reduction, c-sect. - Social History Smoking Status: Never Smoker Substance Use Type: None - Medications Home Medications: Home Medications Medication Instructions Recorded Confirmed Last Taken Type Ferrous Sulfate [Feosol 325 MG tab] 325 mg PO BID #60 tablet 12/06/18 Unknown Rx Ibuprofen [Motrin 800 MG tab] 800 mg PO Q6H PRN #30 tablet 12/06/18 Unknown Rx oxyCODONE /ACETAMINOPHEN [Percocet 1 - 2 tab PO Q4H PRN #30 tablet 12/06/18 Unknown Rx 5/325 mg] Albuterol INH(or & Nicu Only) 2 puff IH QID PRN #1 inhalation 11/26/19 Unknown Rx [ProAir HFA Inhaler] Azithromycin [Zithromax Z-MARA] 250 mg PO DAILY #6 tablet 11/26/19 Unknown Rx Ondansetron [Zofran Odt] 4 mg PO Q8HR #10 tab.rapdis 11/26/19 Unknown Rx guaiFENesin/CODEINE [Robitussin AC] 5 ml PO Q6HR PRN #100 oral.liqd 11/26/19 Unknown Rx predniSONE [Deltasone] 20 mg PO QDAY #5 tab 11/26/19 Unknown Rx ED Physical Exam - General Limitations: No Limitations General appearance: alert, in no apparent distress - Head Head exam: Present: atraumatic, normocephalic - Eye Eye exam: Present: normal appearance, PERRL, EOMI - ENT ENT exam: Present: mucous membranes moist - Neck Neck exam: Present: normal inspection - Respiratory Respiratory exam: Present: normal lung sounds bilaterally, rhonchi. Absent: respiratory distress, wheezes (pt with a bronchitic cough), rales - Cardiovascular Cardiovascular Exam: Present: regular rate, normal rhythm, normal heart sounds. Absent: systolic murmur, diastolic murmur, rubs, gallop - GI/Abdominal GI/Abdominal exam: Present: soft, normal bowel sounds. Absent: distended, tenderness, guarding - Extremities Exam Extremities exam: Present: normal inspection - Back Exam Back exam: Present: normal inspection - Neurological Exam Neurological exam: Present: alert, oriented X3 - Psychiatric Psychiatric exam: Present: normal affect, normal mood - Skin Skin exam: Present: warm, dry, intact, normal color. Absent: rash ED Course Vital Signs 11/25/19 21:51 Temperature 99.2 F Pulse Rate 93 H Respiratory 18 Rate Blood Pressure 145/87 O2 Sat by Pulse 95 Oximetry ED Medical Decision Making - Lab Data Result diagrams: 11/25/19 23:32 11/25/19 23:32 Lab Results 11/25/19 11/25/19 11/25/19 Range/Units 23:32 23:32 23:32 WBC 3.7 L (4.5-11.0) K/mm3 RBC 4.46 (3.65-5.03) M/mm3 Hgb 14.1 (10.1-14.3) gm/dl Hct 42.0 (30.3-42.9) % MCV 94 (79-97) fl MCH 32 (28-32) pg MCHC 34 (30-34) % RDW 12.4 L (13.2-15.2) % Plt Count 167 (140-440) K/mm3 Lymph % (Auto) 49.7 H (13.4-35.0) % Kay % (Auto) 10.4 H (0.0-7.3) % Eos % (Auto) 0.3 (0.0-4.3) % Baso % (Auto) 0.5 (0.0-1.8) % Lymph # 1.8 (1.2-5.4) K/mm3 Kay # 0.4 (0.0-0.8) K/mm3 Eos # 0.0 (0.0-0.4) K/mm3 Baso # 0.0 (0.0-0.1) K/mm3 Seg Neutrophils % 39.1 L (40.0-70.0) % Seg Neutrophils # 1.5 L (1.8-7.7) K/mm3 Sodium 140 (137-145) mmol/L Potassium 3.2 L (3.6-5.0) mmol/L Chloride 99.5 (98-107) mmol/L Carbon Dioxide 26 (22-30) mmol/L Anion Gap 18 mmol/L BUN 6 L (7-17) mg/dL Creatinine 0.8 (0.7-1.2) mg/dL Estimated GFR > 60 ml/min BUN/Creatinine Ratio 8 % Glucose 101 H (65-100) mg/dL Calcium 9.2 (8.4-10.2) mg/dL Total Bilirubin 0.40 (0.1-1.2) mg/dL AST 24 (5-40) units/L ALT 17 (7-56) units/L Alkaline Phosphatase 50 (35-129) units/L Total Protein 8.0 (6.3-8.2) g/dL Albumin 4.6 (3.9-5) g/dL Albumin/Globulin Ratio 1.4 % Lipase 34 (13-60) units/L HCG, Qual (Negative) Influenza A (Rapid) (Negative) Influenza B (Rapid) (Negative) 11/25/19 11/25/19 Range/Units 23:32 Unknown WBC (4.5-11.0) K/mm3 RBC (3.65-5.03) M/mm3 Hgb (10.1-14.3) gm/dl Hct (30.3-42.9) % MCV (79-97) fl MCH (28-32) pg MCHC (30-34) % RDW (13.2-15.2) % Plt Count (140-440) K/mm3 Lymph % (Auto) (13.4-35.0) % Kay % (Auto) (0.0-7.3) % Eos % (Auto) (0.0-4.3) % Baso % (Auto) (0.0-1.8) % Lymph # (1.2-5.4) K/mm3 Kay # (0.0-0.8) K/mm3 Eos # (0.0-0.4) K/mm3 Baso # (0.0-0.1) K/mm3 Seg Neutrophils % (40.0-70.0) % Seg Neutrophils # (1.8-7.7) K/mm3 Sodium (137-145) mmol/L Potassium (3.6-5.0) mmol/L Chloride (98-107) mmol/L Carbon Dioxide (22-30) mmol/L Anion Gap mmol/L BUN (7-17) mg/dL Creatinine (0.7-1.2) mg/dL Estimated GFR ml/min BUN/Creatinine Ratio % Glucose (65-100) mg/dL Calcium (8.4-10.2) mg/dL Total Bilirubin (0.1-1.2) mg/dL AST (5-40) units/L ALT (7-56) units/L Alkaline Phosphatase (35-129) units/L Total Protein (6.3-8.2) g/dL Albumin (3.9-5) g/dL Albumin/Globulin Ratio % Lipase (13-60) units/L HCG, Qual Negative (Negative) Influenza A (Rapid) Negative (Negative) Influenza B (Rapid) Negative (Negative) - Radiology Data Radiology results: image reviewed (slight haziness at the apex of the left diaphragm consistent with possible early infiltrate or atelectasis.) - Medical Decision Making Patient 34-year-old black female with cough, congestion and nausea vomiting. Patient was given Zofran here in the emergency department which did improve her nausea and she will be allowed to orally hydrate at home. Patient's chest x-ray shows possible early infiltrate. Patient will be started on a Z-Mara. Patient given other medications for symptomatic relief as well. Critical care attestation.: If time is entered above; I have spent that time in minutes in the direct care of this critically ill patient, excluding procedure time. ED Disposition Clinical Impression: Atypical pneumonia, Nausea & vomiting Disposition: DC-01 TO HOME OR SELFCARE Is pt being admited?: No Does the pt Need Aspirin: No Condition: Stable Instructions: Pneumonia (ED), Acute Nausea and Vomiting (ED) Referrals: SANTANA SOUZA MD [Primary Care Provider] - 3-5 Days Time of Disposition: 01:36
[2019-11-26 03:20] VITALS: BP 137/77
== END 2019-11-26 03:22 | disposition home or self-care (01) ==
LOC: ED 21:47
DX: J16.8 Pneumonia due to other specified infectious organisms (principal); R11.2 Nausea with vomiting, unspecified
CPT/HCPCS: 36415; 71046; 80053; 83690; 84703; 85025; 87400; Q0162